=== PATIENT | female | born 1940 | race Caucasian/White ===

== ENCOUNTER 2019-08-10 10:40 | Inpatient (IN) | payer MEDICARE, BC ==
--- NOTE | 2019-08-10 11:15 | ED ---
Lower Extremity - HPI Summary HPI Summary: Pt is a 79 y/o F presenting to the ED with a chief complaint of a fall this morning around 0915. She was walking her daughters dog when the dog was startled by a car and yanked the leash, causing her to fall down. She landed on her L hip and bilateral hands. When she tried to get back up, the dog yanked again and she fell on her L knee. She reports pain in her L knee, L hip, and decreased ROM. She has been unable to walk since the incident. She denies LOC, neck pain, LE numbness or tingling, or head injury. Medications reviewed. Allergies noted. - History of Current Complaint Chief Complaint: EDHipPelvisInjury Stated Complaint: HIP PAIN PER EMS Time Seen by Provider: 08/10/19 10:57 Hx Obtained From: Patient Mechanism Of Injury: Fall From A Standing Position Onset of Pain: Immediate, Post Accident Onset/Duration: Still Present Severity Initially: Moderate Severity Currently: Moderate Pain Intensity: 4 Pain Scale Used: 0-10 Numeric Timing: Constant, Lasting Hours Associated Signs And Symptoms: Positive: Knee Pain. Negative: Weakness Aggravating Factor(s): Movement Alleviating Factor(s): Nothing Able to Bear Weight: No - Allergies/Home Medications Allergies/Adverse Reactions: Allergies Allergy/AdvReac Type Severity Reaction Status Date / Time adhesive tape Allergy Rash Verified 08/10/19 10:59 povidone-iodine Allergy Rash Verified 08/10/19 10:59 [From Betadine] tetracycline Allergy Rash Verified 08/10/19 10:58 Home Medications: Home Medications Albuterol HFA INHALER* [Ventolin HFA Inhaler*] 1 puff INH Q6H PRN 08/10/19 [ History Confirmed 08/10/19] Aspirin EC TAB* [Ecotrin EC Low Dose 81 MG*] 81 mg PO WEEKLY 08/10/19 [History Confirmed 08/10/19] Michael/D3/Mag11/Zinc/Lead Project Manager/Billy/Bor [Caltrate 600+D Plus] 2 tab PO DAILY 08/10/19 [ History Confirmed 08/10/19] Cephalexin CAP* [Keflex CAP*] 250 mg PO DAILY 08/10/19 [History Confirmed ] Hyoscyamine ER (NF) [Levbid (NF)] 0.375 mg PO .QOD 08/10/19 [History Confirmed 08/10/19] LoraTADine TAB(NF) [Claritin 10 MG TAB(NF)] 10 mg PO DAILY 08/10/19 [History Confirmed 08/10/19] Metoclopramide TAB* [Reglan TAB*] 5 mg PO Q6H PRN 08/10/19 [History Confirmed ] Multivitamins/Minerals TAB* [Theragran/minerals TAB*] 1 tab PO DAILY 08/10/19 [ History Confirmed 08/10/19] Tamoxifen TAB* [Nolvadex*] 20 mg PO DAILY 08/10/19 [History Confirmed 08/10/19] Umeclidin/Vilant 62.5 MDI(NF) [ANORO 62.5/25 Ellipta DEVICE (NF)] 25 mcg INH DAILY 08/10/19 [History Confirmed 08/10/19] Vit C/E/Zn/Coppr/Lutein/Zeaxan [Preservision Areds 2 Softgel] 1 each PO BID [History Confirmed 08/10/19] Zoledronic Acid/Mannitol-Water [Reclast 5 mg/100 ml Solution] 5 mg IV .YEARLY [History Confirmed 08/10/19] PMH/Surg Hx/FS Hx/Imm Hx Previously Healthy: Yes Endocrine/Hematology History: Denies: Hx Anticoagulant Therapy, Hx Diabetes Respiratory History: Reports: Hx Asthma, Hx Chronic Obstructive Pulmonary Disease (COPD) - Immunization History Immunizations Up to Date: Yes Infectious Disease History: No Infectious Disease History: Denies: Traveled Outside the [place] in Last 30 Days - Family History Known Family History: Negative: Diabetes - Social History Alcohol Use: Occasionally Hx Substance Use: No Substance Use Type: Reports: None Hx Tobacco Use: Yes Smoking Status (MU): Former Smoker Review of Systems Negative: Other - neck pain Positive: Arthralgia, Decreased ROM Neurological: Negative - head injury, LOC Negative: Paresthesia, Numbness All Other Systems Reviewed And Are Negative: Yes Physical Exam - Summary Physical Exam Summary: Constitutional: Well-developed, Well-nourished, Alert. (-) Distressed Skin: Warm, Dry. Abrasions on R palm, abrasions on L 4th and 5th digits, bilateral knee abrasions HENT: Normocephalic; Atraumatic Eyes: Conjunctiva normal Neck: Musculoskeletal ROM normal neck. (-) JVD, (-) Stridor, (-) Tracheal deviation Cardio: Rhythm regular, rate normal, Heart sounds normal; Intact distal pulses; The pedal pulses are 2+ and symmetric. Radial pulses are 2+ and symmetric. (-) Murmur Pulmonary/Chest wall: Effort normal. (-) Respiratory distress, (-) Wheezes, (-) Rales Abd: Soft, (-) tenderness, (-) Distension, (-) Guarding, (-) Rebound Musculoskeletal: (-) Edema. No bony tenderness to R hand, full ROM of L hand/ digits, L leg is rotated externally, shortened. DP/PT pulse 3+ Lymph: (-) Cervical adenopathy Neuro: Alert, Oriented x3 Psych: Mood and affect Normal Triage Information Reviewed: Yes Vital Signs On Initial Exam: Initial Vitals Temp Pulse Resp BP Pulse Ox 98.3 F 83 18 187/103 96 08/10/19 10:49 08/10/19 10:49 08/10/19 10:49 08/10/19 10:49 08/10/19 10:49 Vital Signs Reviewed: Yes Diagnostics - Vital Signs Vital Signs Temp Pulse Resp BP Pulse Ox 08/10/19 11:00 85 96 08/10/19 10:50 84 187/103 96 08/10/19 10:49 98.3 F 80 18 187/103 93 - Laboratory Result Diagrams: 08/10/19 13:07 08/10/19 13:07 Lab Statement: Any lab studies that have been ordered have been reviewed, and results considered in the medical decision making process. - Radiology Hip/Pelvis XR Radiology Interpretation Completed By: Radiologist Summary of Radiographic Findings: ANGULATED FRACTURE OF THE LEFT FEMORAL NECK. ED physician has reviewed this report. Knee XR Radiology Interpretation Completed By: Radiologist Summary of Radiographic Findings: LIMITED STUDY. NO APPRECIABLE ACUTE OSSEOUS INJURY OF THE LEFT KNEE. ED physician has reviewed this report. CXR Radiology Interpretation Completed By: Radiologist Summary of Radiographic Findings: LEFT PLEURAL EFFUSION. PULMONARY FIBROTIC CHANGES. ED physician has reviewed this report. Re-Evaluation - Re-Evaluation 1st re-eval Re-Evaluation Time: 13:13 Change: Unchanged Comment: Pt's daughter is here, and is a PT at [facility]. They are unsure as to whether or not they would like to stay here or be transferred. 2nd re-eval Re-Evaluation Time: 13:42 Change: Unchanged Comment: They have requested that the pt be transferred to [facility], as the pt's daughter knows the hip specialist who would be willing to take care of the pt's hip. They have been informed that the ambulance ride would not be covered by insurance. After speaking with the transfer center, there is some concern about whether or not the pt's hospital stay would be covered by insurance. 3rd re-eval Re-Evaluation Time: 14:37 Change: Unchanged Comment: They will be calling their insurance company to find out whether or not the hospital stay would be covered if the pt were to be transferred. 4th re-eval Re-Evaluation Time: 14:57 Change: Unchanged Comment: Pt agrees to be [place] [facility] as they have talked with their insurance company and the pt's stay at a different facility would not be covered by insurance. 5th re-eval Re-Evaluation Time: 15:25 Change: Unchanged Comment: Pt's daughter is on phone with Medicare now who say that the pt's visit at another facility would be covered. 6th re-eval Re-Evaluation Time: 15:56 Change: Unchanged Comment: Pt would like to be transferred to [facility]. 7th re-eval Re-Evaluation Time: 16:32 Change: Unchanged Comment: The pt is agreeable to [facility] [place]. Lower Extremity Course/Dx - Course Course Of Treatment: Patient is here after a mechanical injury causing a left hip fracture. Patient was a difficult disposition due to family wanting patient transferred to [place] and multiple insurance issues making that impossible. She was ultimately admitted to the hospital for further management. - Diagnoses Provider Diagnoses: Hip fracture, left Discharge ED - Sign-Out/Discharge Documenting (check all that apply): Patient Departure - Discharge Plan Condition: Stable Disposition: ADMITTED TO [facility] - Billing Disposition and Condition Condition: STABLE Disposition: Admitted to [facility] - Attestation Statements Document Initiated by Scribe: Yes Documenting Scribe: Nicole Graf Provider For Whom Scribe is Documenting (Include Credential): Maxime Galdamez MD. Scribe Attestation: I, Nicole Graf, scribed for Maxime Galdamez MD. on 08/10/19 at 1843. Scribe Documentation Reviewed: Yes Provider Attestation: The documentation as recorded by the scribe, Nicole Graf accurately reflects the service I personally performed and the decisions made by me, Maxime Galdamez MD. Status of Scribe Document: Viewed Consult Consult: 5036 - I spoke with Dr. Petty about the pt's present condition. [id number] - I spoke with Dr. Medel who will be evaluating the pt for admission.
--- OUTSIDE RECORDS SUMMARY | 2019-08-10 11:57 | XMS REPORT | Continuity of Care Document ---
:1940 Author Name Contemporary [employer] Modern [employer]cer, System Address Unavailable Unavailable , Care Team Providers Name Role Phone Harris Fairchild MD Unavailable Harris Fairchild MD Unavailable Navya STEEL, Gal Unavailable Tylor MSN NPC, Faby Unavailable Blanka Msn Npc, Karine Pratt Unavailable María SUPERVISOR CONTINGENTS, Pam Unavailable Unavailable More LRT, Marck Unavailable Unavailable Darío RT, Rinu Unavailable Unavailable Unavailable Unavailable Problems ABNORMAL CT SCAN, LUNG (Renamed from ABNORMAL CT SCAN OF LUNG) (R91.8) (865.44 ) Tylor MSN NPC, Comments: chest CT 08/20/2018 with Prognosis: Chest x-ray appears stable. She does have some groundglass opacities on her last CT we'll plan on repeating it in 4 months. as of 2018 Loyal small left pleural effusion, LL base consolidation,new nodule 5mm LLL, numerous tree-in-bud findings RLL worse and new linear opacity Rlung base compared to CT Chest 11/11/[address]/PET 12/02/17Repeat CT Chest 10/05/18 with left pleural effusion larger, 2 new spiculated nodules in the right base 11X7 mm and 14X8mm, mild mediastinal adenopathy, emphysema changes, patchy opacity left base, remainder unchanged. bronchoscopy (10/26/18 with very inflammed mucosa and yellow secretions noted. Pathology/cytology negative for malignancy, positive for acute inflammation.Patient had a normal swallowing evaluation 10/20/18.). BREAST CARCINOMA (C50.919) (174.9) Onset: 2014 Comments: lumpectomy , right. no Faby Nam adjuvant therapy. follows yearly with Dr Montana BRONCHIECTASIS (J47.9) (494.0) Tylor HERNANDEZ, Prognosis: STABLE. as of 04-Aug-2019 Faby COPD (CHRONIC OBSTRUCTIVE PULMONARY DISEASE) (J44.9) (496) eliseo [facility], Prognosis: Patient was evaluated in the office today in routine follow up. Patient symptoms at baseline. Noted to be doing well with current treatment regimen. Compliance with medications discussed and encouraged. Faby Instructed to continue current therapy and contact office if experiences any difficulties with therapy or an increase in symptoms. Treatment recommendations were developed (in part) from: The Gold Wo rkshop Panel. Global Strategy for the Diagnosis, Management and Prevention of COPD: NHLBI/WHO Workshop Report NLHBI; 2000. NIH Publication 2701. 2014 updates available at www.goldcopd.org as of 04-Aug-2019 ENVIRONMENTAL ALLERGIES (Z91.09) (V15.09) [facility] GERD (GASTROESOPHAGEAL REFLUX DISEASE) (K21.9) (530.81) [facility] IBS (IRRITABLE BOWEL SYNDROME) (K58.9) (564.1) [facility] CHCF (CURRENT) USE OF ANTICOAGULANTS (Z79.01) (V58.61) [facility] OSTEOPOROSIS (M81.0) (733.00) [facility] Allergies and Adverse Reactions Adhesive Tape (Allergy) Betadine *ANTISEPTICS & DISINFECTANTS* (Allergy) Reaction: Rash Tetracyclines (Allergy) Medications Albuterol Sulfate 1.25 MG/3ML Inhalation Nebulization Solution; 1 vial Milliliter as needed for 30 days Ordered: 05-Nov-2018 Start: 05-Nov-2018 Quantity: 60 {Milliliter} Comments: Medication taken as needed. Refills: 3 Anoro Ellipta 62.5-25 MCG/INH Inhalation Aerosol Powder Breath Activated; 1 ( one) Puff Puff daily for 30 days Ordered: 21-Apr-2019 Start: 21-Apr-2019 Quantity: 30 {Inhalation} [facility] Loyal Refills: 5 Anoro Ellipta 62.5-25 MCG/INH Inhalation Aerosol Powder Breath Activated; 1 ( one) Puff Puff daily for 90 days Ordered: 21-Apr-2019 Start: 21-Apr-2019 Quantity: 90 {Inhalation} Tylor [facility], Loyal Refills: 3 Aspirin 81 MG Oral Tablet Delayed Release; 1 weekly (81 MG) Caltrate 600+D 600-800 MG-UNIT Oral Tablet; 2 daily (600-800 MG-UNIT) Cephalexin 250 MG Oral Tablet; 1 daily (250 MG) Levbid 0.375 MG Oral Tablet Extended Release 12 Hour; (0.375 MG) Loratadine 10 MG Oral Tablet; 1 daily (10 MG) Metoclopramide HCl 5 MG Oral Comments: Medication taken Tablet; daily, as needed (5 MG) as needed. Multiple Vitamin Oral Tablet; daily PreserVision AREDS 2 Oral Capsule; 1 two times daily RaNITidine HCl 300 MG Oral Comments: Medication taken Tablet; 1 daily, as needed (300 as needed. MG) Reclast 5 MG/100ML Intravenous Solution; yearly (5 MG/100ML) Tamoxifen Citrate 20 MG Oral Tablet; daily (20 MG) Ventolin HFA 108 (90 Base) MCG/ACT Inhalation Aerosol Solution; 2 four times daily, as needed for 0 days Ordered: 07-Apr-2019 Start: 07-Apr-2019 Refills: 0 MD Gal Mendosa Comments: Medication taken as needed. Azithromycin 500 MG Oral Tablet; 1 (one) Tablet daily for 14 days Ordered: Start: 05-Nov-2018 End: 19-Nov-2018 Quantity: 14 {Tablet} MD Gal Mendosa Status: Inactive Refills: 0 Estrace 0.1 MG/GM Vaginal Cream; Status: Inactive UAD (0.1 MG/GM) Hyoscyamine Sulfate ER 0.375 MG Status: Inactive Oral Tablet Extended Release 12 Hour; 1 every other day (0.375 MG) LevoFLOXacin 500 MG Oral Tablet; 1 (one) Tablet daily for 14 days Ordered: Start: 03-Sep-2018 End: 17-Sep-2018 Quantity: 14 {Tablet} MD Gal Mendosa Status: Inactive Refills: 0 Meloxicam 15 MG Oral Tablet; 1 Status: Inactive every other day (15 MG) PredniSONE 5 MG Oral Tablet; Status: Inactive daily (5 MG) Stiolto Respimat 2.5-2.5 MCG/ACT Inhalation Aerosol Solution; 2 (two) Puff daily for 90 days Ordered: 07-Apr-2019 Start: 28-Dec-2018 End: 07-Apr-2019 Quantity: 3 {Inhaler} MD Rio Mendosau Status: Inactive Refills: 3 Procedures AIRFLOW RESISTANCE MEASUREMENT: PULM FUNCT Status: Completed 07-Apr-2019 TEST OSCILLOMETRY (61628) TOTAL VITAL CAPACITY (16834) Status: Completed 07-Apr-2019 THORACIC GAS VOLUME: AIRWAY CLOSING VOLUME Status: Completed 07-Apr-2019 MEASUREMENT: PULM FUNCTION TEST BY GAS (02832) DLCO (CARBON MONOXIDE DIFFUSING CAPACITY) Status: Completed 07-Apr-2019 (81373) DLCO (CARBON MONOXIDE DIFFUSING CAPACITY) Status: Completed 05-Oct-2018 (63302) THORACIC GAS VOLUME: AIRWAY CLOSING VOLUME Status: Completed 05-Oct-2018 MEASUREMENT: PULM FUNCTION TEST BY GAS (41393) RESPIRATORY FLOW VOLUME LOOP (38814) Status: Completed 05-Oct-2018 TOTAL BODY PLETHYSMOGRAPHY: AIRWAY CLOSING Status: Completed 05-Oct-2018 VOLUME MEASUREMENT: PULM FUNCT TST PLETHYSMOGRAP (83854) TOTAL VITAL CAPACITY (86358) Status: Completed 05-Oct-2018 AIRFLOW RESISTANCE MEASUREMENT: PULM FUNCT Status: Completed 05-Oct-2018 TEST OSCILLOMETRY (22656) REST/ EXERCISE OXIMETRY (29227) Status: Completed 03-Sep-2018 RESPIRATORY FLOW VOLUME LOOP (44891) Status: Completed 03-Sep-2018 MEASUREMENT OF NITRIC OXIDE Status: Completed 03-Sep-2018 (20321) Bladder Surgery Status: Completed Oct-2018 Comments: Interstim Chest X-ray Status: Completed 24-Dec-2018 Comments: reviewed today with Dr Marck Mendosa. Left pleural effusion is smaller. BRAYAN consolidation reported as slightly larger. CT Chest is planned in f /u Chest X-ray Status: Completed 04-Aug-2019 Comments: chronic changes CT Scan of Chest Status: Completed Comments: Referred for follow up. the LLL density improved. the other areas same. will follow the report. FeNO Status: Completed 03-Sep-2018 Comments: 30 ppb Flu Vaccine Status: Completed 30-Jul-2018 Hysterectomy; Vaginal Status: Completed Lumpectomy Status: Completed Comments: Right. Malignant Oral Surgery Status: Completed PFT Status: Completed 05-Oct-2018 Comments: Moderate Obstruction. Mild Restriction. Severe Diffusion Defect. PFT Status: Completed 24-Dec-2018 Comments: Moderate Obstruction. Mild Restriction. Moderate Diffusion Defect. PFT Status: Completed 04-Aug-2019 Comments: Moderate Obstruction. FEV1 1.46 (65), ratio 70 Spinal Stimulator Status: Completed Nov-2018 Tubal Ligation Status: Completed CXR PA & LAT (71783)Result: Are you or could Status: Completed Jul-2019 you become ?: No; When was you last CXR/CT?: over week ago; Banquet Food Server: ADAN RuvalcabaT PRE AND POST (34079)Result: Hemoptysis: No Status: Completed 07-Apr-2019 CAT SCAN OF CHEST: CT THORAX W/O DYE (83244)Result: Status: Completed 2018 Are you or could you become ?: No; When was you last CXR/CT?: over week ago; Banquet Food Server: COURTNEY Ruvalcaba SIMPLE PFT: BASELINE PULMONARY FUNCTION TEST (PFT) Status: Completed 2018 (94178)Result: Hemoptysis: No CXR PA & LAT (20189)Result: Are you or could Status: Completed Nov-2018 you become ?: No; When was you last CXR/CT?: over week ago; Banquet Food Server: ADAN RuvalcabaT PRE AND POST (44882)Result: Hemoptysis: No Status: Completed 05-Oct-2018 CAT SCAN OF CHEST: CT THORAX W/O DYE (97013)Result: Status: Completed 2017 Are you or could you become ?: No; When was you last CXR/CT?: over week ago; Banquet Food Server: ADAN RuvalcabaT PRE AND POST (85494)Result: Hemoptysis: No Status: Completed 03-Sep-2018 Immunizations Influenza (3 years and up) On: 30-Jul-2018 Comments:Date approximate Family History Lung/Respiratory Disease Status: Active Comments: Negative Family History Of. Social History Alcohol use: Occasional alcohol use. Current work status: Retired. Comments: Teacher Marital status: . Tobacco use: Former smoker. Comments: [birth year] to 1965 (Up to 1 ppd) Former smoker Female Plan of Treatment PRE AND POST W/ RT (36037) Start: 24-Nov-2019 Intent PRE AND POST (41646) Start: 04-Aug-2019 Intent BRONCHOSCOPY IN ENDO (22934) Start: 08-Oct-2018 Intent MODIFIED BARIUM SWALLOW (59609) Start: 08-Oct-2018 Intent SWALLOWING EVALUATION (46639) Start: 08-Oct-2018 Intent Medical; CT SCAN CHEST - Start: 02-Dec-2019 10:00 Appointment Request [facility] Office XRAY [facility], Xray Medical; PRE AND POST RT - Start: 02-Dec-2019 10:15 Appointment Request [facility] Office Resp Therapy [facility], RT Medical; FOLLOW UP 30 - 4MO FU ,PPRT,CT Start: 02-Dec-2019 10:30 Appointment Request [facility] Office Defuria Msn Npc, Karine Pratt IGA/IGD/IGG/IGM-EACH ([id number]) Start: 07-Apr-2019 10:47 Request COPD (CHRONIC OBSTRUCTIVE PULMONARY DISEASE) : Influenza vaccine seasonally Indication:COPD (CHRONIC OBSTRUCTIVE PULMONARY DISEASE) COPD (CHRONIC OBSTRUCTIVE PULMONARY DISEASE) : FU EITHER - Dr Mendosa patient Indication:COPD (CHRONIC OBSTRUCTIVE PULMONARY DISEASE) COPD (CHRONIC OBSTRUCTIVE PULMONARY DISEASE) : Medication compliance reinforced Indication:COPD (CHRONIC OBSTRUCTIVE PULMONARY DISEASE) ABNORMAL CT SCAN, LUNG (Renamed from ABNORMAL CT SCAN OF LUNG) : FU EITHER - Dr Mendosa patient Indication:ABNORMAL CT SCAN, LUNG (Renamed from ABNORMAL CT SCAN OF LUNG) ABNORMAL CT SCAN, LUNG (Renamed from ABNORMAL CT SCAN OF LUNG) : Pt Education: Bronchoscopy Indication:ABNORMAL CT SCAN, LUNG (Renamed from ABNORMAL CT SCAN OF LUNG) Results ACID FAST CUL/SMEAR Ordered On: 26-Oct-2018 ACID FAST CUL/SMEAR See Comments: SPECIMEN DESCRIPTION Note (Normal) BRONCHIAL WASHINGSSPECIAL REQUESTS NONEACID FAST SMEAR NO ACID FAST BACILLI (CONCENTRATED SMEAR)CULTURE RESULTS NO ACID FAST BACILLI ISOLATED AFTER 8 WEEKSREPORT STATUS FINAL 12/21/2018Unless otherwise specified, [place] [address] ANAEROBIC CULTURE Ordered On: 26-Oct-2018 ANAEROBIC CULTURE See Comments: SPECIMEN DESCRIPTION Note (Normal) BRONCHIAL WASHINGSSPECIAL REQUESTS NONECULTURE RESULTS ANAEROBIC CULTURES NOT PERFORMED ON THIS SPECIME N. REPORT STATUS FINAL 10/26/2018Unless otherwise specified, [place] [address] FUNGUS CULTURE Ordered On: 26-Oct-2018 FUNGUS CULTURE See Note Comments: SPECIMEN DESCRIPTION (Normal) BRONCHIAL WASHINGSSPECIAL REQUESTS NONECULTURE RESULTS SCEDOSPORIUM (MONOSPORIUM) APIOSPERMUM /PSEUDALLESCHERIA BOYDII COMPLEX BY PHENOTYPIC M ETHODS 11/26/18 SENT TO [facility] FOR IDENTIFICATION 11/19/18TESTING PERFORMED BY: [facility] PATHOLOG[address] [address] REPORT STATUS FINAL 11/26/2018Unless otherwise specified, testing performed by [email or web address] [address] [place] [id number] LEGIONELLA CULTURE Ordered On: 26-Oct-2018 REPORT STATUS SEE NOTE Comments: Culture negative for (Normal) Legionella species Performed by [facility],[address] [place] [address],[place] [address] zoz.[facility], Navin Bruner MD, Lab. DirectorUnless otherwise specified, testing performed by [email or web address] [address] [place] [id number] CULTURE RESULTS SEE NOTE Comments: Specimen received and in (Normal) progress. Performed by [facility],[address] [facility] [place] [address] aqc.Ocutec, Navin Bruner MD, Lab. Director LEGIONELLA PNEUM DFA Ordered On: 26-Oct-2018 L. PNEUMOPHILIA DFA See Comments: NegativeReference range: Note (Normal) NegativeNucleic acid amplification tests provide greater sensitivity than DFA and should be ordered if clinically indicated. The preferred test is Legionella Species by Qualitative PCR ([facility] test code [id number]).Performed by [facility],[address] [facility] [place] [address] gzd.Ocutec, Navin Bruner MD, Lab. DirectorUnless otherwise specified, testing performed by [email or web address] [address] [place] [phone] L. PNEUMOPHILIA SRCE BRONCHIAL WASHINGS (Normal) MISCELLANEOUS TEST Ordered On: 26-Oct-2018 PERFORMING LAB: Comments: [address] [place] [id number] otherwise (Normal) specified, testing performed by [email or web address] [address] [place] [address] RESULT: SEE SEPARATE REPORT (Normal) TEST NAME See Note Comments: [id number] Fungal (Normal) (Mold/Yeast) IdentificationSPECIMEN SOURCE: BRONCHIAL WASHINGS P JIROVECII BY PCR Ordered On: 26-Oct-2018 P JIROVECII RESULT See Comments: Not DetectedNOT DETECTED Note (Normal) - A negative result does not rule out thepresence of PCR inhibitors in the patient specimen or assayspecific nucleic acid in concentrations below the level ofdetection by the assay.TEST INFORMATION: Pneumocystis jirovecii Detection by PCRTest developed and characteristics determined by [facility] See Compliance Statement B: [facility]/CSPerformed by [facility],[address] [place] [address] mzu.[employer], Navin Bruner MD, Lab. DirectorUnless otherwise specified, testing performed by [email or web address] [address] [place] [address] P JIROVECII SOURCE BRONCHIAL WASHINGS (Normal) RESPIRATORY CULTURE Ordered On: 26-Oct-2018 RESPIRATORY CULTURE See Comments: SPECIMEN DESCRIPTION Note (Normal) BRONCHIAL WASHINGSGRAM STAIN MANY (>25/LPF) WHITE BLOOD CELLS NO EPITHELIAL CELLS NO BACTERIACULTURE RESULTS NORMAL RESPIRATORY FLORAREPORT STATUS FINAL 10/28/2018Unless otherwise specified, testing performed by [email or web address] [address] [place] [id number] PLATELET COUNT, AUTOMATED Ordered On: 22-Oct-2018 (13978) PLT 413 10*3/uL (Normal) Range: 150 10*3/uL - 450 10*3/uL Comments: Unless otherwise specified, testing performed by [email or web address] [address] [place] [address] PTT (ACTIVATED PARTIAL Ordered On: 22-Oct-2018 THROMBOPLASTIN TIME) (55816) APTT 26.4 s (Normal) Range: 22.0 s - 32.6 s Comments: Unless otherwise specified, testing performed by [email or web address] [address] [place] [address] PT (PROTHROMBIN TIME) Ordered On: 22-Oct-2018 (55670) INR 0.99 (Normal) Comments: SUGGESTED THERAPEUTIC RANGES USING INR FORSTABILIZED ANTICOAGULATED PATIENTS:STANDARD DOSE THERAPY INR 2.0-3.0 DVT, PE, PREVENT DVT OR EMBOLISMHIGH DOSE THERAPY INR 2.5-3.5 PREVENT EMBOLISM FROM MECHANICAL HEART VALVEUnless otherwise specified, testing performed by [facility] [address] [address] PT 10.2 s (Normal) Range: 9.2 s - 11.9 s Vital Signs 04-Aug-2019 8:25 Temperature 97.4 f Comments: Method: Tympanic Pulse 83 /min Comments: Pattern: Regular Respiration Rate 16 /min Comments: Pattern: Unlabored O2 SAT 97 % Comments: Room air BP Systolic 118 mm[Hg] Comments: Patient Position: Sitting; Cuff Location: Left Arm; Cuff Size: Standard BP Diastolic 68 mm[Hg] Comments: Patient Position: Sitting; Cuff Location: Left Arm; Cuff Size: Standard Weight 114 lb Height 66 in BMI 18.4 kg/m2 BSA 1.58 m2 21-Apr-2019 14:42 Temperature 98.4 f Comments: Method: Tympanic Pulse 93 /min Comments: Pattern: Regular Respiration Rate 14 /min Comments: Pattern: Unlabored O2 SAT 97 % Comments: Room air BP Systolic 136 mm[Hg] Comments: Patient Position: Sitting; Cuff Location: Left Arm; Cuff Size: Standard BP Diastolic 80 mm[Hg] Comments: Patient Position: Sitting; Cuff Location: Left Arm; Cuff Size: Standard Weight 114 lb Height 66 in BMI 18.4 kg/m2 BSA 1.58 m2 07-Apr-2019 10:01 Temperature 97.9 f Comments: Method: Tympanic Pulse 96 /min Comments: Pattern: Regular Respiration Rate 16 /min Comments: Pattern: Unlabored O2 SAT 97 % Comments: Room air BP Systolic 136 mm[Hg] Comments: Patient Position: Sitting; Cuff Location: Left Arm; Cuff Size: Standard BP Diastolic 76 mm[Hg] Comments: Patient Position: Sitting; Cuff Location: Left Arm; Cuff Size: Standard Weight 110 lb Height 66 in BMI 17.75 kg/m2 BSA 1.55 m2 24-Dec-2018 11:05 Temperature 98.4 f Comments: Method: Tympanic Pulse 77 /min Comments: Pattern: Regular Respiration Rate 16 /min Comments: Pattern: Unlabored O2 SAT 99 % Comments: Room air BP Systolic 122 mm[Hg] Comments: Patient Position: Sitting; Cuff Location: Left Arm; Cuff Size: Standard BP Diastolic 66 mm[Hg] Comments: Patient Position: Sitting; Cuff Location: Left Arm; Cuff Size: Standard Weight 111 lb Height 66 in BMI 17.92 kg/m2 BSA 1.56 m2 05-Nov-2018 14:18 Temperature 97.8 f Comments: Method: Tympanic Pulse 78 /min Comments: Pattern: Regular Respiration Rate 12 /min Comments: Pattern: Unlabored O2 SAT 95 % Comments: Room air BP Systolic 148 mm[Hg] Comments: Patient Position: Sitting; Cuff Location: Left Arm; Cuff Size: Standard BP Diastolic 94 mm[Hg] Comments: Patient Position: Sitting; Cuff Location: Left Arm; Cuff Size: Standard Weight 108 lb Height 66 in BMI 17.43 kg/m2 BSA 1.54 m2 08-Oct-2018 11:27 Temperature 97.8 f Comments: Method: Tympanic Pulse 88 /min Comments: Pattern: Regular Respiration Rate 16 /min Comments: Pattern: Unlabored O2 SAT 97 % Comments: Room air BP Systolic 146 mm[Hg] Comments: Patient Position: Sitting; Cuff Location: Left Arm; Cuff Size: Standard BP Diastolic 82 mm[Hg] Comments: Patient Position: Sitting; Cuff Location: Left Arm; Cuff Size: Standard Weight 109 lb Height 66 in BMI 17.59 kg/m2 BSA 1.55 m2 05-Oct-2018 10:54 Pulse 91 /min Comments: Pattern: Regular Respiration Rate 16 /min Comments: Pattern: Unlabored O2 SAT 97 % Comments: Room air Weight 109 lb Height 66 in BMI 17.59 kg/m2 BSA 1.55 m2 03-Sep-2018 9:58 Comments: 2 minute walk sat 92% Temperature 98 f Comments: Method: Tympanic Pulse 90 /min Comments: Pattern: Regular Respiration Rate 14 /min Comments: Pattern: Unlabored O2 SAT 95 % Comments: Room air BP Systolic 134 mm[Hg] Comments: Patient Position: Sitting; Cuff Location: Left Arm; Cuff Size: Standard BP Diastolic 74 mm[Hg] Comments: Patient Position: Sitting; Cuff Location: Left Arm; Cuff Size: Standard Weight 108 lb Height 66 in BMI 17.43 kg/m2 BSA 1.54 m2 Advance Directives HIPAA - Effective on 04/21/2019. Expiration date unspecified Effective: 2018 Encounters Office Visit 04-Aug-2019 8:30 To 04-Aug-2019 9:00 Encounter Reason: COPD - The last office visit was 3 month(s) ago. No changes in management were made at the last visit [facility] Office . The Gold Classification is Stage 2: Moderate COPD. Symptoms do not include dyspnea on exertion, wheezing or productive cough. The patient describes this as mild and unchanged. Symptoms are exacerbated by activity. Symptoms are relieved by use of a nebulizer, while symptoms are not relieved by inhaler use, supplemental oxygen, rest, recumbency, the upright position or cough suppressants. Associated s ymptoms do not include fever, weakness, general malaise, hemoptysis, leg edema , orthopnea, upper respiratory infection symptoms, chest pain or altered mental status. Current treatment includes inhaled a lbuterol, inhaled long-acting beta-2 agonists and inhaled anticholinergics. By report there is good compliance with treatment and fair symptom control. Pertinent medical history includes smoking (has qu it) and pneumonia, while pertinent medical history does not include smoking ( currently), oxygen dependency, steroid dependency, asthma, prior intubation and ventilator therapy, tracheostomy, congestive heart failure, cor pulmonale, obstructive sleep apnea, lung cancer, impaired immunity or alpha-1 antitrypsin deficiency. The patient is currently able to do activities of daily living with limitations. Encounter Diagnosis: COPD (CHRONIC OBSTRUCTIVE PULMONARY DISEASE), ABNORMAL CT SCAN, LUNG (Renamed from ABNORMAL CT SCAN OF LUNG) Office Visit 21-Apr-2019 14:30 To 21-Apr-2019 15:03 Encounter Reason: COPD - The last office visit was 4 month(s) ago. Management changes made at the last visit include or [facility] Office dering started medications. The Gold Classification is Stage 2: Moderate COPD. Symptoms include dyspnea on exertion, wheezing and productive cough. Onset was gradual 2 week(s) ago. The episodes occur da jack. The patient describes this as mild and worsening. Symptoms are exacerbated by activity. Symptoms are relieved by use of a nebulizer, while symptoms are not relieved by inhaler use, supplemental oxy gen, rest, recumbency, the upright position or cough suppressants. Associated symptoms do not include fever, weakness, general malaise, hemoptysis, leg edema , orthopnea, upper respiratory infection symp toms, chest pain or altered mental status. Current treatment includes inhaled albuterol, inhaled long-acting beta-2 agonists and inhaled anticholinergics. By report there is good compliance with treatme nt. Pertinent medical history includes smoking (has quit) and pneumonia, while pertinent medical history does not include smoking (currently), oxygen dependency, steroid dependency, asthma, prior intuba tion and ventilator therapy, tracheostomy, congestive heart failure, cor pulmonale, obstructive sleep apnea, lung cancer, impaired immunity or alpha-1 antitrypsin deficiency. The patient is currently ab le to do activities of daily living with limitations.04/21/2019:FEELS BETTER WITH THE NEW INHALER. THE LAB TESTING ALL NORMAL RANGE. Encounter Diagnosis: COPD (CHRONIC OBSTRUCTIVE PULMONARY DISEASE), ABNORMAL CT SCAN, LUNG (Renamed from ABNORMAL CT SCAN OF LUNG), BRONCHIECTASIS Office Visit 07-Apr-2019 10:45 To 07-Apr-2019 10:50 Encounter Reason: COPD - The last office visit was 4 month(s) ago. Management changes made at the last visit include or [facility] Office dering started medications. The Gold Classification is Stage 2: Moderate COPD. Symptoms include dyspnea on exertion, wheezing and productive cough. Onset was gradual 2 week(s) ago. The episodes occur da jack. The patient describes this as mild and worsening. Symptoms are exacerbated by activity. Symptoms are relieved by use of a nebulizer, while symptoms are not relieved by inhaler use, supplemental oxy gen, rest, recumbency, the upright position or cough suppressants. Associated symptoms do not include fever, weakness, general malaise, hemoptysis, leg edema , orthopnea, upper respiratory infection symp toms, chest pain or altered mental status. Current treatment includes inhaled albuterol, inhaled long-acting beta-2 agonists and inhaled anticholinergics. By report there is good compliance with treatme nt. Pertinent medical history includes smoking (has quit) and pneumonia, while pertinent medical history does not include smoking (currently), oxygen dependency, steroid dependency, asthma, prior intuba tion and ventilator therapy, tracheostomy, congestive heart failure, cor pulmonale, obstructive sleep apnea, lung cancer, impaired immunity or alpha-1 antitrypsin deficiency. The patient is currently ab le to do activities of daily living with limitations. Encounter Diagnosis: ABNORMAL CT SCAN, LUNG ( Renamed from ABNORMAL CT SCAN OF LUNG), COPD (CHRONIC OBSTRUCTIVE PULMONARY DISEASE) Historical Summary 25-Mar-2019 9:23 To 25-Mar-2019 9:43 [facility] Office Medication Order 28-Dec-2018 10:35 To 28-Dec-2018 12:14 Encounter Diagnosis: COPD (CHRONIC OBSTRUCTIVE PULMONARY DISEASE) [facility] Office Visit 24-Dec-2018 10:53 To 24-Dec-2018 15:34 Encounter Reason: Abnormal Chest Imaging - The referring provider is Dr. Harris Fairchild. Radiographic findings include a [facility] pleural effusion (left), an air bronchogram (left), an infiltrate (LLL, RML, BRAYAN), pulmonary nodules and ground glass changes. The patient was referred by a primary care provider. Initial presentation w as 3 month(s) ago. Presentation included cough, dyspnea, fever, wheezing, incidental findings on chest x-ray, incidental findings on chest CT and incidental findings on abdominal CT. Past evaluation has included chest x-ray, chest CT (08/20/2018 with small left pleural effusion, LL base consolidation,new nodule 5mm LLL, numerous tree-in-bud findings RLL worse and new linear opacity Rlung base compared to CT Chest 11/11/[address]/PET 12/02/17Repeat CT Chest 10/05/18 with left pleural effusion larger, 2 new spiculated nodules in the right base 11X7 mm and 14X8mm, mild mediastinal adenopathy, emphysema ch anges, patchy opacity left base, remainder unchanged.), pulmonary function tests and bronchoscopy (10/26/18 with very inflammed mucosa and yellow secretions noted. Pathology/cytology negative for maligna ncy, positive for acute inflammation.Patient had a normal swallowing evaluation 10/20/18.). Treatment has included antibiotics (ceftin 07/2018, Levaquin 09/03/18, and at last visit Azithromycin 500 d aily for 14 days. She states she never took the azithromycin because she was having bladder surgery (inter stim) to address urinary frequency. It is a 2 step procedure. 11/09/18 and 11/25/18. Dr Maci raymond did the surgery. She was given an antibiotic at the time of the first surgery and for 10 days after. Since that time she has been "feeling like her old self again".) and bronchodilators. The las t clinic visit was 6 week(s) ago. Management changes made at the last visit include adding medication. Symptoms include dyspnea (improved), while symptoms do not include cough, chest pain, hemoptysis, w heezing or palpitations. Onset was gradual 2 month(s) ago. The patient describes this as moderate in severity and improving. Symptoms are exacerbated by physical exertion, while symptoms are not exacerb ated by air pollutants, smoking or supine position. Symptoms are relieved by rest and inhaled medication. Associated symptoms do not include fatigue, fever, weight loss, rash, arthralgia or night sweats . Current treatment includes bronchodilators. By report there is good compliance with treatment, good tolerance of treatment and good symptom control. Pertinent medical history includes asthma (hx datin g back to teen years), chronic obstructive pulmonary disease, chronic respiratory disease, tobacco use (quit in 1967 after 9 years smoking.), previous pneumonia and malignancy (basal cell breast cancer) , while pertinent medical history does not include aspirated foreign body, cardiovascular disease, diabetes, endocrine dysfunction, gastrointestinal disease, penetrating chest wound, pulmonary embolus, cardiothoracic surgery, HIV infection or tuberculosis. Risk factors include tobacco use, while risk factors do not include occupational toxic exposure, impaired immunity or [facility] residency., [ADDITIONAL REASON] COPD - Management changes made at the last visit include adding Stiolto and stopping pulmicort and spiriva (she did not make this change as she was having bladder surgery and "did n ot want to chance it".). The Gold Classification is Stage 2: Moderate COPD. Symptoms include dyspnea on exertion, non-productive cough and productive cough. Onset was gradual. The symptoms occur intermi ttently. The episodes occur daily. The patient describes this as moderate in severity. Symptoms are exacerbated by activity. Symptoms are relieved by inhaler use and rest. Associated symptoms do not inc lude leg edema or upper respiratory infection symptoms. Current treatment includes inhaled albuterol, inhaled long-acting beta-2 agonists, inhaled anticholinergics and inhaled corticosteroids. Pertinent medical history includes smoking (has quit), asthma and pneumonia. The patient is currently able to do activities of daily living without limitations. Encounter Diagnosis: ABNORMAL CT SCAN, LUNG ( Renamed from ABNORMAL CT SCAN OF LUNG), COPD (CHRONIC OBSTRUCTIVE PULMONARY DISEASE) Historical Summary 24-Dec-2018 7:52 To 24-Dec-2018 8:17 Encounter Reason: Abnormal Chest Imaging - The referring provider is Dr. Harris Fairchild. Radiographic findings include a [facility] pleural effusion (left), an air bronchogram (left), an infiltrate (LLL, RML, BRAYAN), pulmonary nodules and ground glass changes. The patient was referred by a primary care provider. Initial presentation w as 3 month(s) ago. Presentation included cough, dyspnea, fever, wheezing, incidental findings on chest x-ray, incidental findings on chest CT and incidental findings on abdominal CT. Past evaluation has included chest x-ray, chest CT (08/20/2018 with small left pleural effusion, LL base consolidation,new nodule 5mm LLL, numerous tree-in-bud findings RLL worse and new linear opacity Rlung base compared to CT Chest 11/11/[address]/PET 12/02/17Repeat CT Chest 10/05/18 with left pleural effusion larger, 2 new spiculated nodules in the right base 11X7 mm and 14X8mm, mild mediastinal adenopathy, emphysema ch anges, patchy opacity left base, remainder unchanged.), pulmonary function tests and bronchoscopy (10/26/18 with very inflammed mucosa and yellow secretions noted. Pathology/cytology negative for maligna ncy, positive for acute inflammation.Patient had a normal swallowing evaluation 10/20/18.). Treatment has included antibiotics (ceftin 07/2018, Levaquin 09/03/18, and at last visit Azithromycin 500 gaetano y for 14 days.) and bronchodilators. The last clinic visit was 6 week(s) ago. Management changes made at the last visit include adding medication ( azithromycin). Symptoms include cough, dyspnea and whee zing, while symptoms do not include chest pain, hemoptysis or palpitations. Onset was gradual 2 month(s) ago. The patient describes this as moderate in severity and improving. Symptoms are exacerbated b y physical exertion, while symptoms are not exacerbated by air pollutants, smoking or supine position. Symptoms are relieved by rest and inhaled medication. Associated symptoms do not include fatigue, f ever, weight loss, rash, arthralgia or night sweats. Current treatment includes bronchodilators. By report there is good compliance with treatment and good tolerance of treatment. Pertinent medical hist ory includes asthma, chronic obstructive pulmonary disease, chronic respiratory disease, tobacco use (quit in 1968 after 9 years smoking.) and malignancy (basal cell breast cancer), while pertinent medi araceli history does not include aspirated foreign body, cardiovascular disease, diabetes, endocrine dysfunction, gastrointestinal disease, penetrating chest wound, pulmonary embolus, previous pneumonia, ca rdiothoracic surgery, HIV infection or tuberculosis. Risk factors include tobacco use, while risk factors do not include occupational toxic exposure, impaired immunity or [facility]., [ADDITIONAL REASON] COPD - The Gold Classification is Stage 2: Moderate COPD. Symptoms include dyspnea on exertion, non-productive cough and productive cough. Onset was gradual. The symptoms occur inte rmittently. The episodes occur daily. The patient describes this as moderate in severity. Symptoms are exacerbated by activity. Symptoms are relieved by inhaler use and rest. Associated symptoms do not include leg edema or upper respiratory infection symptoms. Current treatment includes inhaled albuterol, inhaled long-acting beta-2 agonists and inhaled anticholinergics. Pertinent medical history inclu oliver smoking (has quit), asthma and pneumonia. The patient is currently able to do activities of daily living without limitations. Office Visit 05-Nov-2018 13:54 To 05-Nov-2018 14:46 Encounter Reason: Abnormal Chest Imaging - Radiographic findings include a pleural effusion (left), an air bronchogram [facility] (left) and an infiltrate (LLL, RML, BRAYAN). The patient was referred by a primary care provider. Initial presentation was 2 month(s) ago. Presentation included cough, dyspnea, fever (in 06/2018), wheezing, incidental findings on chest x-ray, incidental findings on chest CT and incidental findings on abdominal CT. Past evaluation has included chest x-ray and chest CT (PET 11/2017). Treat ment has included analgesics (ceftin in 07/2018, did not help, may be slightly better.). Symptoms include cough, dyspnea and wheezing, while symptoms do not include chest pain, hemoptysis or palpitations . Onset was gradual 2 month(s) ago. The patient describes this as moderate in severity and unchanged. Symptoms are exacerbated by physical exertion, while symptoms are not exacerbated by air pollutants, smoking or supine position. Symptoms are relieved by rest and inhaled medication, while symptoms are not relieved by activity modification, irritant avoidance, an upright position or steroids. Associat ed symptoms include fatigue, fever (some time) and weight loss, while associated symptoms do not include anxiety, diaphoresis, rash, arthralgia or night sweats. The patient is not currently being treate d for this problem. By report there is good compliance with treatment. Pertinent medical history includes asthma, chronic obstructive pulmonary disease , chronic respiratory disease, tobacco use (quit in 1967 after 9 year smoking.) and malignancy (basal cell, breast,), while pertinent medical history does not include aspirated foreign body, cardiovascular disease, diabetes, endocrine dysfunction, gastr ointestinal disease, penetrating chest wound, pulmonary embolus, previous pneumonia, cardiothoracic surgery, HIV infection or tuberculosis. Risk factors do not include tobacco use, occupational toxic ex posure, impaired immunity or [facility] residency.10/08/2018:THE ABOVE INFO REVIEWED AGAIN. FEELS A LOT BETTER. LESS CONGESTION, LESS SOB, LESS COUGH. THE FULL PFTS SHOWED MODERATE COPD, AND MILD R ESTRICTION. CT SHOWED NOW NODULES IN THE RIGHT BASE, WHICH IS NEW FROM FEW WEEKS AGO, CLINICALLY LESS LIKELY FROM MALIGNANCY. PATIENT DID HAS TROUBLE SWOLLOW SOME TIME. NEED TO R/O ASPIRATION. DISC USSED BRONCHOSCOPY. AND THE PATIENT AGREE. THE PROS AN CONS DISCUSSED. , [ ADDITIONAL REASON] Follow up diagnostic procedure - The patient had bronchoscopy. The diagnostic te st was performed on - Date:10/26/2018. Current symptoms include cough, dyspnea and wheezing. There is a medical history of chronic obstructive lung disease, lung disease and asthma, while there is no hi story of tobacco use, lung cancer, depression, cardiovascular disease, coronary artery disease, abnormal Pap smear, anatomic urinary anomalies, chest injury, congenital/chromosomal defects, current preg marcelo, emotional problems, hypertension, injury, mental retardation, neurologic disorder, psychiatric illness or other. There is a family history of breast cancer, while there is no history of lung canc er, cancer, cardiovascular disease, cystic fibrosis, Down's syndrome, mental retardation or myocardial infarction before age 55. Encounter Diagnosis: ABNORMAL CT SCAN, LUNG ( Renamed from ABNORMAL CT SCAN OF LUNG), COPD (CHRONIC OBSTRUCTIVE PULMONARY DISEASE) Office Visit 08-Oct-2018 11:16 To 08-Oct-2018 12:01 Encounter Reason: Abnormal Chest Imaging - Radiographic findings include a pleural effusion (left), an air bronchogram [facility] (left) and an infiltrate (LLL, RML, BRAYAN). The patient was referred by a primary care provider. Initial presentation was 2 month(s) ago. Presentation included cough, dyspnea, fever (in 06/2018), wheezing, incidental findings on chest x-ray, incidental findings on chest CT and incidental findings on abdominal CT. Past evaluation has included chest x-ray and chest CT (PET 11/2017). Treat ment has included analgesics (ceftin in 07/2018, did not help, may be slightly better.). Symptoms include cough, dyspnea and wheezing, while symptoms do not include chest pain, hemoptysis or palpitations . Onset was gradual 2 month(s) ago. The patient describes this as moderate in severity and unchanged. Symptoms are exacerbated by physical exertion, while symptoms are not exacerbated by air pollutants, smoking or supine position. Symptoms are relieved by rest and inhaled medication, while symptoms are not relieved by activity modification, irritant avoidance, an upright position or steroids. Associat ed symptoms include fatigue, fever (some time) and weight loss, while associated symptoms do not include anxiety, diaphoresis, rash, arthralgia or night sweats. The patient is not currently being treate d for this problem. By report there is good compliance with treatment. Pertinent medical history includes asthma, chronic obstructive pulmonary disease , chronic respiratory disease, tobacco use (quit in 1967 after 9 year smoking.) and malignancy (basal cell, breast,), while pertinent medical history does not include aspirated foreign body, cardiovascular disease, diabetes, endocrine dysfunction, gastr ointestinal disease, penetrating chest wound, pulmonary embolus, previous pneumonia, cardiothoracic surgery, HIV infection or tuberculosis. Risk factors do not include tobacco use, occupational toxic ex posure, impaired immunity or [facility] residency.10/08/2018:THE ABOVE INFO REVIEWED AGAIN. FEELS A LOT BETTER. LESS CONGESTION, LESS SOB, LESS COUGH. THE FULL PFTS SHOWED MODERATE COPD, AND MILD R ESTRICTION. CT SHOWED NOW NODULES IN THE RIGHT BASE, WHICH IS NEW FROM FEW WEEKS AGO, CLINICALLY LESS LIKELY FROM MALIGNANCY. PATIENT DID HAS TROUBLE SWOLLOW SOME TIME. NEED TO R/O ASPIRATION. DISC USSED BRONCHOSCOPY. AND THE PATIENT AGREE. THE PROS AN CONS DISCUSSED. Encounter Diagnosis: ABNORMAL CT SCAN, LUNG ( Renamed from ABNORMAL CT SCAN OF LUNG), COPD (CHRONIC OBSTRUCTIVE PULMONARY DISEASE) PFT Testing 05-Oct-2018 10:27 To 05-Oct-2018 11:57 Encounter Diagnosis: COPD (CHRONIC OBSTRUCTIVE PULMONARY DISEASE) [facility] Radiology 05-Oct-2018 10:25 To 05-Oct-2018 12:52 Encounter Diagnosis: ABNORMAL CT SCAN, LUNG ( Renamed from ABNORMAL CT SCAN OF LUNG) [facility] Office Visit 03-Sep-2018 9:39 To 11-Oct-2018 10:56 Encounter Reason: Abnormal Chest Imaging - Radiographic findings include a pleural effusion (left), an air bronchogram [facility] (left) and an infiltrate (LLL, RML, BRAYAN). The patient was referred by a primary care provider. Initial presentation was 2 month(s) ago. Presentation included cough, dyspnea, fever (in 06/2018), wheezing, incidental findings on chest x-ray, incidental findings on chest CT and incidental findings on abdominal CT. Past evaluation has included chest x-ray and chest CT (PET 11/2017). Treat ment has included analgesics (ceftin in 07/2018, did not help, may be slightly better.). Symptoms include cough, dyspnea and wheezing, while symptoms do not include chest pain, hemoptysis or palpitations . Onset was gradual 2 month(s) ago. The patient describes this as moderate in severity and unchanged. Symptoms are exacerbated by physical exertion, while symptoms are not exacerbated by air pollutants, smoking or supine position. Symptoms are relieved by rest and inhaled medication, while symptoms are not relieved by activity modification, irritant avoidance, an upright position or steroids. Associat ed symptoms include fatigue, fever (some time) and weight loss, while associated symptoms do not include anxiety, diaphoresis, rash, arthralgia or night sweats. The patient is not currently being treate d for this problem. By report there is good compliance with treatment. Pertinent medical history includes asthma, chronic obstructive pulmonary disease , chronic respiratory disease, tobacco use (quit in 1967 after 9 year smoking.) and malignancy (basal cell, breast,), while pertinent medical history does not include aspirated foreign body, cardiovascular disease, diabetes, endocrine dysfunction, gastr ointestinal disease, penetrating chest wound, pulmonary embolus, previous pneumonia, cardiothoracic surgery, HIV infection or tuberculosis. Risk factors do not include tobacco use, occupational toxic ex posure, impaired immunity or [facility] residency. Encounter Diagnosis: COPD (CHRONIC OBSTRUCTIVE PULMONARY DISEASE), ABNORMAL CT SCAN, LUNG (Renamed from ABNORMAL CT SCAN OF LUNG) Historical Summary 02-Sep-2018 16:23 To 02-Sep-2018 17:45 [facility] Office Payers [employer] [place] [address] [facility] [address] [place] Group Number: NONE tel: [facility] [address] [address] [place] [address] [place] Group Number: [id number] tel: KEVIN BLAIR [address] [place] [address] tel:
[2019-08-10 13:15] LABS: ABS Basophils 0.1 10^3/ul (0-0.2); ABS Monocytes 0.6 10^3/ul (0-0.8); ABS Neutrophils 9.6 10^3/ul (1.5-7.7); Eosinophil % 0.3 %; Hematocrit 42 % (35-47); Hemoglobin 13.8 g/dL (12.0-16.0); Lymphocyte % 9.2 %; Mean Corpuscular HGB Conc 33 g/dL (31-36); Mean Corpuscular Hemoglobin 29 pg (27-31); Mean Corpuscular Volume 86 fL (80-97); Nucleated Red Blood Cells % 0.1; Platelet Count 253 10^3/uL (150-450); Red Blood Count 4.82 10^6 /uL (3.70-4.87); Red Cell Distribution Width 14 % (10-15); White Blood Count 11.3 10^3/uL (3.5-10.8)
[2019-08-10 13:38] LABS: Albumin 3.5 g/dL (3.2-5.2); BUN/Creatinine Ratio 17.6 (8-20); Calcium 8.6 mg/dL (8.6-10.3); EGFR African American 101.5 (>60); EGFR Non-African American 83.9 (>60); Potassium 3.5 mmol/L (3.5-5.0); Total Protein 7.1 g/dL (6.4-8.9)
[2019-08-10 13:39] LABS: Globulin 3.6 g/dL (2-4); Total Bilirubin 0.5 mg/dL (0.2-1.0)
[2019-08-10] MEDS ORDERED: Morphine 4 MG/ML VIAL (1 ml) 4 MG/ML VIAL IV ONE (13:41)
[2019-08-10] MEDS ORDERED: hydrALAZINE IV* 20 MG/ML VIAL IV SLOW PU PRN (15:12)
[2019-08-10] MEDS ORDERED: Acetaminophen TAB* 325 MG PO PRN (17:16)
[2019-08-10] MEDS ORDERED: Ondansetron INJ* 2 MG/ML VIAL IV PRN (17:16)
[2019-08-10] MEDS ORDERED: Al Hydrox/Mg Hydrox/Simet LIQ* 30 ML UDC PO PRN (17:16)
[2019-08-10] MEDS ORDERED: Morphine INJ* 2 MG/ML 1 ML SYRINGE (TWO MG - NEW SYRINGE VERSION) IV PRN (17:16)
[2019-08-10] MEDS ORDERED: Albuterol HFA INHALER* 8 gm MDI INH PRN (17:21)
[2019-08-10] MEDS ORDERED: NS 0.9% 1000 ML** 1,000 ML IV SCH (17:30)
[2019-08-10] MEDS ORDERED: Albuterol/Ipratropium NEB.SOL* Albuterol 2.5 MG/Ipratropium 0.5 MG 3 ML INH PRN (17:37)
[2019-08-10 17:47] LABS: Urine Appearance Clear; Urine Bilirubin Negative (Negative); Urine Blood Negative (Negative); Urine Color Straw; Urine Glucose Negative (Negative); Urine Ketones Negative (Negative); Urine Nitrite Negative (Negative); Urine Protein Negative (Negative); Urine Urobilinogen Negative (Negative)
[2019-08-10] MEDS: Ketorolac INJ* 15 MG/ML 1 ML VIAL IV PUSH PRN (18:10)
--- NOTE | 2019-08-10 20:18 | CONS ---
CONSULTATION REPORT: DATE OF CONSULT: 08/10/19 ATTENDING ORTHOPEDIC PROVIDER: Eduardo Petty MD CHIEF COMPLAINT: Left hip pain. HISTORY OF PRESENT ILLNESS: The patient is a 79-year-old female presenting to the emergency room with a chief complaint of fall this morning around 9:15 when she was walking her daughter's dog. Dog pulled the leash causing her to fall to the ground. She landed on her left hip and was unable to get back up. She was immediately unable to bear weight and a bystander brought her to the emergency room. At baseline, she walks without an assistive device and lives alone taking care of herself. She is quite active with walking, golfing and gardening with no chest pain or shortness of breath with activity. Her past medical history is significant for COPD and asthma which she considers well controlled. She is otherwise in her normal state of health, no recent illness and no complaints. Currently, she is comfortable lying in bed, though has left hip pain with any movement. She has no pain of her left lower extremity otherwise. She has no pain of her right leg. She did fall onto her bilateral hands and reports some scrapes to her left hand, though is able to move the hand and wrist well without any pain. PAST MEDICAL HISTORY: Significant for asthma and COPD. PAST SURGICAL HISTORY: Significant for hysterectomy and lumpectomy with no adverse effects from anesthesia. ALLERGIES: Allergy to TETRACYCLINES causing a rash. Allergy to ADHESIVE, though she tolerates paper tape well. FAMILY HISTORY: No adverse effects from anesthesia. SOCIAL HISTORY: The patient lives alone. She walks without an assistive device at baseline. She is a former smoker. Occasional alcohol use. REVIEW OF SYSTEMS: General: Negative for fevers, chills, or recent illness. HEENT: Negative for head trauma, headache, or change in vision. Cardiac: Negative for chest pain or history of SC. Respiratory: Negative for any shortness of breath. Positive for well controlled COPD and asthma. GI: Negative for nausea, vomiting, diarrhea, or abdominal pain. : Negative for dysuria. Musculoskeletal: Positive for left hip pain. Neuro: Negative for any decreased sensation, numbness, tingling in bilateral lower extremities. PHYSICAL EXAM: Vital Signs: Temperature 98.3, pulse rate 85, oxygen saturation 96%, blood pressure 173/88. General: Well appearing, in no acute distress. HEENT: Normocephalic, atraumatic. Extraocular movements intact. Cardiac: S1, S2. Respiratory: Clear to auscultation bilaterally. Abdomen: Bowel sounds normoactive. No guarding. No rigidity. No distention. Musculoskeletal: Left hand 5th digit and ulnar aspect with some superficial abrasion. Able to flex and extend all digits and wrist without pain. There is no tenderness to palpation. Extremities: Otherwise, skin envelope intact. Able to flex and extend digits, wrist, elbow, and shoulder well without pain. Lower extremities, right lower extremity superficial abrasion to the right knee , nontender to palpation. Skin envelope was otherwise intact, nontender to palpation. Able to flex and extend digits, ankle, knee and hip without pain. Negative log roll at the hip. Left lower extremity shortened and externally rotated, skin envelope intact. Able to flex and extend digits, ankle without any pain. Knee and hip range of motion produces pain in the hip. She is tender to palpation over the lateral aspect of the hip, otherwise LLe nontender. DIAGNOSTIC STUDIES/LAB DATA: Pelvis CT, impacted fracture of the left femoral neck. Left knee x-ray, no fracture of the left knee. Laboratory studies: Hemoglobin 13.8, hematocrit 42. INR 1.0. Sodium 136, potassium 3.5, creatinine 0.68. ASSESSMENT: Left femoral neck fracture. PLAN: The patient has remained nonweightbearing on bed rest. She can have chemical DVT prophylaxis stopped at midnight and she should also be made n.p.o. at midnight. Morning labs should include CBC, BMP, INR, type and screen. She is going to need a hemiarthroplasty or a total hip replacement on the left side. The patient and her daughter, Zoë, are both in agreement to this. I have discussed this case with Dr. Petty, who agrees with the assessment and plan. Either he or one of the orthopedic partners will perform her surgery either 08/11 or 08/12 GREGORY PYLE [id number]/CPS #: [id number] MTDD
--- NOTE | 2019-08-10 20:26 | HP ---
HISTORY AND PHYSICAL: DATE OF ADMISSION: 08/10/19 PRIMARY CARE PROVIDER: Dr. Harris Fairchild in [place], [place]. ATTENDING PHYSICIAN WHILE IN THE HOSPITAL: Dr. Erickson Medel * (dictated by GREGORY Foss). CHIEF COMPLAINT: Left hip pain, status post fall. HISTORY OF PRESENT ILLNESS: Tess Shafer is a 79-year-old white female with past medical history significant for COPD, breast cancer, asthma, frequent UTIs and osteoporosis, who presented to the emergency department today due to left hip pain after a fall. She was walking her daughter's dog when suddenly the dog exerted a pull and she fell to the ground. She then started to get up and then the dog pulled her to the ground once more. She landed on both of her hands, her left knee, and her left hip. She immediately had left hip pain. She denies head injury. She denies paresthesias or other anesthesias to the lower extremities. She denies pain in her hands, wrists, arms or her knee at this time. She denies visual changes, headache, chest pain, difficulty breathing, abdominal pain, nausea, or vomiting. Additionally, she denies dysuria or hematuria and fever or chills. She tells me she is on chronic UTI suppression with Keflex, which she tells me her transitional care manager put her on due to her frequent UTIs. EMERGENCY DEPARTMENT COURSE: The patient arrived to the emergency department. Her temperature was 98.3 degrees Fahrenheit, pulse rate 83, respiratory rate 18 , oxygen saturation 96% on room air, blood pressure of 187/103. Hip x-ray demonstrated a fracture of the left femoral neck and therefore, the hospitalists were asked to evaluate the patient for admission. PAST MEDICAL HISTORY: 1. COPD/asthma. 2. Breast cancer in 2016 and 2017. No chemoradiation. 3. Frequent UTIs. 4. Osteoporosis. PAST SURGICAL HISTORY: 1. Bladder InterStim implant. 2. Total hysterectomy. 3. Right breast lumpectomy. HOME MEDICATIONS: 1. Aspirin 81 mg p.o. weekly. 2. Albuterol inhaler 1 puff inhaled q.6 hours p.r.n. shortness of breath/ wheezing. 3. Reglan 5 mg p.o. q.6 hours p.r.n. indigestion. 4. Zoledronic acid 5 mg IV yearly. 5. Keflex 250 mg p.o. daily. 6. Tamoxifen 20 mg p.o. daily. 7. Loratadine 10 mg p.o. daily. 8. Hyoscyamine 0.35 mg p.o. every other day. 9. PreserVision AREDS softgel 1 tab p.o. b.i.d. 10. Caltrate 600 plus D 2 tab p.o. daily. 11. Anoro Ellipta 25 mcg inhaled daily. 12. Multivitamin 1 tab p.o. daily. ALLERGIES: The patient has had a reaction of rash to BETADINE. Reaction of rash to TETRACYCLINES. Reaction of rash to ADHESIVE TAPE. FAMILY HISTORY: Mother of complications related to a fall in her 70s. She had a history of rheumatoid arthritis. Her father 10 days after her mother from what sounds like acute heart failure likely related to takotsubo also in the 70s. The patient tells me she was told her father of a broken heart. SOCIAL HISTORY: The patient is a retired teacher. She is and had 3 children, 2 of which are living. She is a prior smoker for 9 years and she smoked pack and a half day, she quit in 1967. She denies alcohol use and drug use. REVIEW OF SYSTEMS: An 11-point review of systems was completed and all pertinent positives and negatives are above in the HPI. All other systems are negative. PHYSICAL EXAMINATION GENERAL: A thin elderly white female, lying in hospital bed, appearing comfortable, in no acute distress. Daughter at bedside. HEENT: Head: Normocephalic, atraumatic. Eyes: PERRL. Sclerae anicteric. ENT: Mucous membranes moist. NECK: Supple without JVD. LUNGS: Clear to auscultation throughout. CARDIO: Regular rate and rhythm without murmurs, rubs, or gallops. ABDOMEN: Soft, nontender, nondistended. EXTREMITIES: No clubbing, cyanosis, edema, or calf tenderness. NEUROLOGIC: The patient is able to move her both sides of toes and no limitations of her upper extremities as well. Sensation to light touch is intact throughout her lower extremities and symmetrical. The patient is alert and oriented x3. No focal deficits. MUSCULOSKELETAL: Left leg externally rotated. Tenderness at the left hip with movement of the left lower extremity. DIAGNOSTIC STUDIES/LAB DATA: White blood cell count 11.3, hemoglobin 13.8, hematocrit 42, platelet count 253. Sodium 136, potassium 3.5, chloride 103, carbon dioxide 30, anion gap 3, BUN 12, creatinine 0.68, glucose 122, calcium 8.6. Unremarkable LFTs. Urinalysis overall negative. Hip/pelvis x-ray, angulated fracture of the left femoral neck. Left knee x-ray, limited study. No appreciable acute osseous injury of the left knee. Chest x-ray, left pleural effusion. Pulmonary fibrotic changes. Pelvis CT, impression, impacted fracture of the left femoral neck. ASSESSMENT AND PLAN: Tess Shafer is a 79-year-old white female with past medical history significant for chronic obstructive pulmonary disease/asthma, frequent urinary tract infections, breast cancer and osteoporosis, who presented to the emergency department due to left hip pain after an accidental fall, found to have a left femoral neck fracture. The patient will be admitted inpatient for: 1. Hip fracture. Orthopedic Surgery has been consulted and we are awaiting their recommendations. We greatly appreciate their input. The patient has been bedrest only. The patient has been made n.p.o. after midnight in anticipation of surgery for tomorrow and her subcu heparin will be stopped after midnight in anticipation of surgery tomorrow as well. The patient has no paresthesias or anesthesias of left lower extremity at this time. I will start pain control with p.r.n. Tylenol, Toradol, and oxycodone with p.r.n. morphine for breakthrough. I will start the patient on bowel regimen as well. I ordered the CT of the pelvis for the orthopedic team and results are as above. Regarding operative risks: The patient has an RCRI risk score of 0 indicating 3.9% 30-day risk of and myocardiac arrest. Additionally, the patient has a NSQIP cardiac complication risk of 0.2%, which is below average. 2. Hypertensive urgency. The patient does not have a past medical history of hypertension and she has been hypertensive in the emergency department with systolic blood pressure in the 190s. I have ordered p.r.n. hydralazine for this and we will continue to monitor this and adjust hydralazine as needed to ensure stabilization leading up to surgery. 3. Chronic obstructive pulmonary disease. We will continue the patient's formulary substitution for her Anoro Ellipta inhaler. No acute signs of exacerbation at this time. The patient does have small pleural effusion on chest x- ray and she should be encouraged to use the incentive spirometry. 4. History of breast cancer. The patient is taking tamoxifen and I will continue this. 5. History of frequent urinary tract infections. The patient takes chronic suppression of Keflex. I will continue this for now. However, the surgical team will likely be using IV antibiotics in the perioperative and postoperative phase and her oral antibiotics should be discontinued during that period of time. Her urinalysis is negative. 6. Leukocytosis. The patient's leukocytosis is likely related to stress of her fall and she does not have any other signs of infection at this time. Her chest x- ray is now suspicious for pneumonia and her urine is clear and she is afebrile. We will continue to follow this leukocytosis. 7. FEN. The patient will have a regular unrestricted diet at this time and will be placed n.p.o. after midnight with continuous normal saline starting at midnight. Electrolytes are within normal limits. 8. Code status. The patient is full code. 9. DVT prophylaxis. The patient is on subcu heparin. She has a DVT risk score of 5. Subcu heparin will be held after midnight as previously mentioned in anticipation of surgery tomorrow. TIME SPENT: Approximately 45 minutes was spent on this admission, approximately half this time was spent at bedside. This case has been reviewed by my attending, Dr. Erickson Medel, and he agrees with this plan of care. GREGORY FOSS [id number]/[facility] #: [id number] MTDDennis
--- NOTE | 2019-08-10 21:25 | CONS ---
ORTHOPEDIC CONSULTATION NOTE: DATE OF CONSULT: 08/10/19 DICTATED BY: Sophia Moore MD Thank you for this orthopedic consultation. CHIEF COMPLAINT: Left hip pain. HISTORY OF PRESENT ILLNESS: Ms. Shafer is a 79-year-old female who presented to [facility] Emergency Room today with a fall. She was walking the dog when the dog pulled on the leash and caused her to fall. She immediately had pain in the left hip and left knee. This was 10/10 pain making it difficult for her to stand or walk. She was brought to [facility], found to have a displaced femoral neck fracture on the left. The patient reports she is normally an independent ambulator, active with golf and other exercises. PAST MEDICAL HISTORY: Breast cancer, COPD, asthma. PAST SURGICAL HISTORY: Breast lumpectomy. HOME MEDICATIONS: 1. Albuterol inhaler 1 puff q.6 hours p.r.n. 2. Aspirin 81 mg p.o. weekly. 3. Calcium and vitamin D 2 tabs p.o. daily. 4. Keflex 250 mg p.o. daily. 5. Levbid 0.375 mg p.o. every other day. 6. Loratadine 10 mg p.o. daily. 7. Reglan 5 mg p.o. q.6 hours p.r.n. 8. Multivitamin 1 tablet p.o. daily. 9. Tamoxifen 20 mg p.o. daily. 10. Umeclidinium/vilanterol 62.5 MDI 25 mcg inhaled daily. 11. Reclast 5 mg IV yearly. ALLERGIES: TETRACYCLINE, ADHESIVE TAPE and IODINE. FAMILY HISTORY: Negative. SOCIAL HISTORY: The patient lives outside of [place], but has a [facility]. She has a daughter in [place] with grandchildren. Normally an independent ambulator. No tobacco or recreational drug use. Minimal alcohol use. REVIEW OF SYSTEMS: Positive for the recent fall. Positive for left hip and left knee pain. Negative for fever, chills, chest pain, shortness of breath, nausea, vomiting, headache, or dizziness. Otherwise, patient reports review of systems is negative or not relevant. PHYSICAL EXAMINATION: Vitals: Temperature 98.1, pulse 81, blood pressure 164/ 81, O2 saturation 97% on room air. General: The patient is a thin female, in no apparent distress, alert and oriented x3, pleasant mood, appropriate affect. Gait not assessed. Balance not assessed. HEENT: Atraumatic, normocephalic. Pupils equal and reactive to light. Chest: Unlabored breathing. Abdomen is soft, nontender, nondistended. Bilateral upper extremities, patient's skin is intact. Full range of motion of the shoulders, elbows, and hands. 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 2+ palpable radial pulses. Right lower extremity, the patient's skin is intact. No abrasions or open wounds. No palpable masses or lymph nodes. Hip flexion and knee flexion without pain distally. Positive dorsiflexion and plantarflexion with 5/5 strength. Full sensation to light touch in all nerve distributions. 2+ palpable DP pulse. Left lower extremity, the patient's leg is externally rotated. She does dorsiflex and plantarflex. 2 + palpable DP pulse. Full sensation to light touch in all nerve distributions. Any motions through the hip causes pain. Skin is intact with the hip. Thighs are swollen but compressible. DIAGNOSTIC STUDIES/LAB DATA: White blood cells 11.3, hematocrit 42, platelets 253. INR 1. Sodium 136, potassium 3.5, chloride 103, BUN and creatinine 12 and 0.68. Urine is negative for infection or abnormality. Radiograph, multiple views, the patient's multiple x-rays of the left hip and knee show a displaced femoral neck fracture. There are some moderate arthritic changes at the hip joint visualized. No obvious fracture at the knee. ASSESSMENT AND PLAN: Ms. Shafer is a 79-year-old female status post fall today with a displaced left femoral neck fracture. I am asked to consult by my colleague Dr. Petty. I am happy to take care for this patient. The patient, her daughter, and I discussed the femoral neck fracture today. Because she is so active and does have some arthritis in the hip joint, I would recommend a total hip arthroplasty and they are in agreement. They wished to proceed with operative care. The risks of surgery include but are not limited to bleeding, infection, damage to nearby structures, continued pain, need for further surgery, intraoperative fracture, nerve palsy, hardware failure or loosening, dislocation, leg length discrepancy, stroke, heart attack, blood clot and . They wished to proceed. We will await medical clearance on this patient. I will tentatively schedule her for left total hip arthroplasty either on 08/11/19 or 08/12/19. This will depend on her medical clearance and the next available operating room. The patient understands the treatment plan. For now, she will be on bedrest with p.r.n. analgesia. She will have a regular diet for now. [id number]/[facility] #: [id number] MTDD
[2019-08-10] MEDS ORDERED: Heparin VIAL(*) 5000 UNITS/ML VIAL (FIVE THOUSAND) SUBCUT SCH (22:00)
[2019-08-10] MEDS: oxyCODONE/Acetamin 5/325 MG* TAB PO PRN (22:23)
[2019-08-10] MEDS: Senna TAB 8.6 mg* TAB PO SCH (22:33)
[2019-08-11] MEDS: NS 0.9% 1000 ML** 1,000 ML IV SCH (00:28)
[2019-08-11] MEDS: Ketorolac INJ* 15 MG/ML 1 ML VIAL IV PUSH PRN ×4 (02:47→22:03)
[2019-08-11 06:42] LABS: ABS Eosinophils 0.2 10^3/ul (0-0.6); ABS Lymphocytes 1.9 10^3/ul (1.0-4.8); ABS Monocytes 0.6 10^3/ul (0-0.8); ABS Neutrophils 4.6 10^3/ul (1.5-7.7); Eosinophil % 2.3 %; Hematocrit 39 % (35-47); Hemoglobin 13.5 g/dL (12.0-16.0); Lymphocyte % 26.2 %; Mean Corpuscular HGB Conc 34 g/dL (31-36); Mean Corpuscular Hemoglobin 30 pg (27-31); Mean Corpuscular Volume 86 fL (80-97); Mean Platelet Volume 7.3 fL (7.4-10.4); Nucleated Red Blood Cells % 0.1; Platelet Count 219 10^3/uL (150-450); Red Blood Count 4.58 10^6 /uL (3.70-4.87); Red Cell Distribution Width 14 % (10-15); White Blood Count 7.4 10^3/uL (3.5-10.8)
[2019-08-11 07:20] LABS: Calcium 8.2 mg/dL (8.6-10.3); Potassium 3.7 mmol/L (3.5-5.0)
[2019-08-11 07:25] LABS: EGFR African American 115.1 (>60); EGFR Non-African American 95.1 (>60)
[2019-08-11] MEDS: Tiotropium Brom/Olodaterol MDI INH SCH (07:58)
[2019-08-11] MEDS: Senna TAB 8.6 mg* TAB PO SCH ×2 (08:53→22:03)
[2019-08-11] MEDS ORDERED: Influenza VAC *QUAD* 2019-20* 0.5 ML SYRINGE IM ONE (09:00)
[2019-08-11] MEDS ORDERED: Cephalexin CAP* 250 MG PO SCH (09:00)
[2019-08-11] MEDS ORDERED: Cetirizine* 10 MG TAB PO SCH (09:00)
[2019-08-11] MEDS ORDERED: Tamoxifen TAB* 10 MG PO SCH (09:00)
[2019-08-11] MEDS ORDERED: Multivitamins/Minerals TAB PO SCH (09:00)
--- NOTE | 2019-08-11 09:44 | PN ---
Progress Note - Progress Note Date of Service: 08/11/19 SOAP: Subjective: [] Pt seen at bedside. Her pain is well controlled and she has no complaints. Denies CP, SOB, dizziness, nausea. She was seen by Dr Moore last night and will have a left total hip replacement today at approx 1400. Objective: []Gen: Appears well, NAD LLE: shortened and externally rotated limb. F/E at MTPs and ankle intact, sensation intact distally, DP2+. Calves supple and nontender Assessment: []L femoral neck fracture Plan: []Bedrest, NWB LLE OR today with Dr Moore for left total hip replacement at approx 1400. Patient is aware and agreeable to this procedure. All of her questions have been answered. Will need 2g Iv ancef preop, will sign written order in pacu Vital Signs Temp 97.7 F 08/11/19 07:22 Pulse 78 08/11/19 07:58 Resp 14 08/11/19 07:58 BP 133/81 08/11/19 07:22 Pulse Ox 98 08/11/19 07:58 Intake & Output 08/10/19 08/11/19 08/11/19 18:59 06:59 18:59 Intake Total 640 Output Total 900 Balance -260 Weight 110 lb 110 lb Intake: Oral 640 Output: Urine 900 Laboratory Last Values WBC 7.4 10^3/uL (3.5-10.8) 08/11/19 06:19 RBC 4.58 10^6 /uL (3.70-4.87) 08/11/19 06:19 Hgb 13.5 g/dL (12.0-16.0) 08/11/19 06:19 Hct 39 % (35-47) 08/11/19 06:19 MCV 86 fL (80-97) 08/11/19 06:19 MCH 30 pg (27-31) 08/11/19 06:19 MCHC 34 g/dL (31-36) 08/11/19 06:19 RDW 14 % (10-15) 08/11/19 06:19 Plt Count 219 10^3/uL (150-450) 08/11/19 06:19 MPV 7.3 fL (7.4-10.4) L 08/11/19 06:19 Neut % (Auto) 62.4 % 08/11/19 06:19 Lymph % (Auto) 26.2 % 08/11/19 06:19 Arthur % (Auto) 8.5 % 08/11/19 06:19 Eos % (Auto) 2.3 % 08/11/19 06:19 Baso % (Auto) 0.6 % 08/11/19 06:19 Absolute Neuts (auto) 4.6 10^3/ul (1.5-7.7) 08/11/19 06:19 Absolute Lymphs (auto) 1.9 10^3/ul (1.0-4.8) 08/11/19 06:19 Absolute Monos (auto) 0.6 10^3/ul (0-0.8) 08/11/19 06: Absolute Eos (auto) 0.2 10^3/ul (0-0.6) 08/11/19 06:19 Absolute Basos (auto) 0.0 10^3/ul (0-0.2) 08/11/19 06:19 Absolute Nucleated RBC 0.0 10^3/ul 08/11/19 06: Nucleated RBC % 0.1 08/11/19 06:19 INR (Anticoag Therapy) 1.00 (0.82-1.09) 08/10/19 13:07 APTT 32.8 seconds (26.0-38.0) 08/11/19 09:01 Sodium 137 mmol/L (135-145) 08/11/19 06:19 Potassium 3.7 mmol/L (3.5-5.0) 08/11/19 06:19 Chloride 106 mmol/L (101-111) 08/11/19 06:19 Carbon Dioxide 25 mmol/L (22-32) 08/11/19 06:19 Anion Gap 6 mmol/L (2-11) 08/11/19 06:19 BUN 11 mg/dL (6-24) 08/11/19 06:19 Creatinine 0.61 mg/dL (0.51-0.95) 08/11/19 06:19 Est GFR ( Amer) 115.1 (>60) 08/11/19 06:19 Est GFR (Non-Af Amer) 95.1 (>60) 08/11/19 06:19 BUN/Creatinine Ratio 18.0 (8-20) 08/11/19 06:19 Glucose 97 mg/dL (70-100) 08/11/19 06:19 Calcium 8.2 mg/dL (8.6-10.3) L 08/11/19 06:19 Total Bilirubin 0.50 mg/dL (0.2-1.0) 08/10/19 13:07 AST 22 U/L (13-39) 08/10/19 13:07 ALT 15 U/L (7-52) 08/10/19 13:07 Alkaline Phosphatase 62 U/L (34-104) 08/10/19 13:07 Total Protein 7.1 g/dL (6.4-8.9) 08/10/19 13:07 Albumin 3.5 g/dL (3.2-5.2) 08/10/19 13:07 Globulin 3.6 g/dL (2-4) 08/10/19 13:07 Albumin/Globulin Ratio 1.0 (1-3) 08/10/19 13:07 Urine Color Straw 08/10/19 15:28 Urine Appearance Clear 08/10/19 15:28 Urine pH 8.0 (5-9) 08/10/19 15:28 Ur Specific [place] 1.010 (1.010-1.030) 08/10/19 15:28 Urine Protein Negative (Negative) 08/10/19 15:28 Urine Ketones Negative (Negative) 08/10/19 15:28 Urine Blood Negative (Negative) 08/10/19 15:28 Urine Nitrate Negative (Negative) 08/10/19 15:28 Urine Bilirubin Negative (Negative) 08/10/19 15:28 Urine Urobilinogen Negative (Negative) 08/10/19 15:28 Ur Leukocyte Esterase Negative (Negative) 08/10/19 15:28 Urine Glucose Negative (Negative) 08/10/19 15:28 Blood Type O Positive 08/11/19 06:19 Antibody Screen Negative 08/11/19 06:19
[2019-08-11 12:47] LABS: ABS Eosinophils 0.1 10^3/ul (0-0.6); ABS Lymphocytes 1.3 10^3/ul (1.0-4.8); ABS Monocytes 0.5 10^3/ul (0-0.8); ABS Neutrophils 4.7 10^3/ul (1.5-7.7); Hematocrit 40 % (35-47); Hemoglobin 13.7 g/dL (12.0-16.0); Lymphocyte % 19.6 %; Mean Corpuscular HGB Conc 35 g/dL (31-36); Mean Corpuscular Hemoglobin 30 pg (27-31); Mean Corpuscular Volume 86 fL (80-97); Mean Platelet Volume 7.2 fL (7.4-10.4); Nucleated Red Blood Cells % 0.1; Platelet Count 238 10^3/uL (150-450); Red Blood Count 4.62 10^6 /uL (3.70-4.87); Red Cell Distribution Width 14 % (10-15); White Blood Count 6.6 10^3/uL (3.5-10.8)
[2019-08-11 12:50] LABS: Activated Partial Thrombo Time 31.6 seconds (26.0-38.0); INR 1.08 (0.82-1.09)
[2019-08-11 12:58] LABS: EGFR African American 103.3 (>60); EGFR Non-African American 85.3 (>60)
[2019-08-11] MEDS: Heparin VIAL(*) 5000 UNITS/ML VIAL (FIVE THOUSAND) SUBCUT SCH ×2 (13:34→22:01)
[2019-08-11] MEDS: oxyCODONE/Acetamin 5/325 MG* TAB PO PRN (13:34)
[2019-08-11] MEDS ORDERED: hydrALAZINE IV* 20 MG/ML VIAL IV SLOW PU ONE (13:43)
--- NOTE | 2019-08-11 13:51 | PN ---
Subjective Date of Service: 08/11/19 Interval History: Pt is feeling well. She is a little worked up about her surgery being cancelled for cardiology evaluation. The patient tells me she is able to walk up hill/ climb a flight of stairs without any chest pain or SOB. She was told previously that she had an abnormal EKG. Objective Active Medications: Acetaminophen (Tylenol Tab*) 650 mg PO Q4H PRN PRN Reason: MILD PAIN or TEMP > 100.4 Al Hydrox/Mg Hydrox/Simethicone (Maalox Plus*) 30 ml PO Q6H PRN PRN Reason: INDIGESTION Albuterol/Ipratropium (Duoneb (Albuterol 2.5 Mg/Ipratropium 0.5 Mg)) 1 neb INH Q4H PRN PRN Reason: SOB/WHEEZING Cephalexin HCl (Keflex Cap*) 250 mg PO DAILY@0900 [facility] Cetirizine HCl (Zyrtec*) 10 mg PO DAILY@0900 [facility] Famotidine (Pepcid Iv*) 20 mg IV ONCE ONE Stop: 08/12/19 08:01 Heparin Sodium (Porcine) (Heparin Vial(*)) 5,000 units SUBCUT Q8HR [facility] Stop: 08/11/19 23:59 Last Admin: 08/11/19 13:34 Dose: 5,000 units Hydralazine HCl (Apresoline Iv*) 5 mg IV SLOW PU ONCE ONE Stop: 08/11/19 13:44 Hydralazine HCl (Apresoline Iv*) 10 mg IV SLOW PU Q6H PRN PRN Reason: SYSTOLIC BP GREATER THAN: Sodium Chloride (Ns 0.9% 1000 Ml) 1,000 mls @ 100 mls/hr IV PER RATE [facility] Last Admin: 08/11/19 00:28 Dose: 100 mls/hr Ketorolac Tromethamine (Toradol Inj*) 15 mg IV PUSH Q6H PRN PRN Reason: PAIN - MODERATE Last Admin: 08/11/19 08:59 Dose: 15 mg Morphine Sulfate (Morphine Inj (Syringe))*) 2 mg IV Q4H PRN PRN Reason: severe pain breakthrough Multivitamins/Minerals (Theragran/Minerals Tab*) 1 tab PO DAILY@0900 [facility] Ondansetron HCl (Zofran Inj*) 4 mg IV Q4H PRN PRN Reason: NAUSEA/VOMITING Oxycodone/Acetaminophen (Percocet 5/325 Tab*) 1 tab PO Q4H PRN PRN Reason: PAIN - SEVERE Last Admin: 08/11/19 13:34 Dose: 1 tab Senna (Senokot 8.6 Mg Tab*) 1 tab PO 0900,2100 [facility] Tamoxifen Citrate (Nolvadex*) 20 mg PO DAILY@0900 [facility] Tiotropium [place]/Olodaterol (Stiolto Respimat Inh [place] (60 Puff)) 2 puff INH DAILY [facility] Last Admin: 08/11/19 07:58 Dose: 2 puff Vital Signs - 8 hr 08/11/19 08/11/19 08/11/19 07:22 07:58 12:11 Temperature 97.7 F 98.1 F Pulse Rate 80 78 96 Respiratory 16 14 16 Rate Blood Pressure 133/81 176/88 (mmHg) O2 Sat by Pulse 94 98 99 Oximetry 08/11/19 08/11/19 13:27 13:34 Temperature Pulse Rate Respiratory 18 Rate Blood Pressure 172/84 (mmHg) O2 Sat by Pulse Oximetry Oxygen Devices in Use Now: None Appearance: Elderly female sitting up in bed, NAD Eyes: No Scleral Icterus Ears/Nose/Mouth/Throat: Mucous Membranes Moist Respiratory: Symmetrical Chest Expansion and Respiratory Effort, Clear to Auscultation Cardiovascular: NL Sounds; No Murmurs; No JVD, No Edema, - - mildly tachycardic but regular Abdominal: NL Sounds; No Tenderness; No Distention Extremities: No Clubbing, Cyanosis, - - LLQ shortened and externally rotated Skin: No Nodules or Sclerosis Neurological: Alert and Oriented x 3 Result Diagrams: 08/11/19 12:17 08/11/19 12:16 Assess/Plan/Problems-Billing Ms Shafer is a 79 yo F who has a h/o COPD/asthma, osteoporosis and frequent UTIs on suppressive Abx therapy who was walking dog when she was pulled down twice and unfortunately sustained a left hip fracture. - Patient Problems (1) Closed left hip fracture Current Visit: Yes Status: Acute Code(s): S72.002A - FRACTURE OF UNSP PART OF NECK OF LEFT FEMUR, INIT SNOMED Code(s): 945786461 Comment: Management per Dr. Moore. Anesthesia has asked for cardiology evaluation pre-operatively. I suspect based on the patient's abnormal EKG with ST-T wave abnormalities in the anterolateral leads. Clinically the patient is very active and has a RCRI of 0 and is considered below risk via the NSQIP. Await further recommendations from Dr. Moore. Will try to obtain old EKG from pt 's PCP. (2) Asthma Current Visit: Yes Status: Acute Code(s): J45.909 - UNSPECIFIED ASTHMA, UNCOMPLICATED SNOMED Code(s): 445738964 Comment: Stable. No exacerbation. Will continue stiolto and prn duonebs. (3) Osteoporosis Current Visit: Yes Status: Acute Code(s): M81.0 - AGE-RELATED OSTEOPOROSIS W /O CURRENT PATHOLOGICAL FRACTURE SNOMED Code(s): 07985540 Comment: Pt receives zometa yearly. (4) Frequent UTI Current Visit: Yes Status: Acute Code(s): N39.0 - URINARY TRACT INFECTION, SITE NOT SPECIFIED SNOMED Code(s): 019128073 Comment: Continue keflex as suppression. (5) DVT prophylaxis Current Visit: Yes Status: Acute Code(s): Z29.9 - ENCOUNTER FOR PROPHYLACTIC MEASURES, UNSPECIFIED SNOMED Code(s): 197332487 Comment: SQ heparin (6) Full code status Current Visit: Yes Status: Acute Code(s): Z78.9 - OTHER SPECIFIED HEALTH STATUS SNOMED Code(s): 514439815
[2019-08-11] MEDS: Tamoxifen TAB* 10 MG PO SCH (17:42)
--- NOTE | 2019-08-11 19:24 | ECHO ---
*[facility]* [place] [address] Fax #: [phone] Transthoracic Echocardiogram Patient: Tess Shafer : 1940 Study Date: 08/11/2019 Age: 79 Gender: F HR: 93 bpm Height: 66 in /167.6 cm BSA: 1.55 m^2 Weight: 109.8 lb /49.9 kg BMI: 17.8 kg/m^2 *Certified Ophthalmic Technologist: * Cat Cameron RD *Referring Physician: * Ekaterina Brooke MD *Reading Physician: * Ekaterina Brooke MD Indications: Abnormal EKG. History: Chronic obstructive pulmonary disease. The patient has a history of breast malignancy. Risk factors: Former tobacco use. Conclusions Summary: - Left ventricle: The cavity size is below normal. Wall thickness is moderately increased. Systolic function is hyperdynamic. The estimated ejection fraction is 70-75%. Doppler parameters are consistent with abnormal left ventricular relaxation (grade 1 diastolic dysfunction). - Left atrium: The atrium is severely dilated. - Mitral valve: The Mitral valve annulus appears mildly calcified. The leaflets are mildly thickened. There is trace to mild regurgitation. - Aortic valve: Thickening, consistent with sclerosis. - Tricuspid valve: There is mild-moderate regurgitation directed toward the septum. - Pulmonary arteries: Systolic pressure is mildly increased. The peak pressure during systole by Doppler is 34.0 mm Hg, possibly underestimated. - Prior echocardiogram not available to compare. Study data: Transthoracic echocardiogram. Procedure: Transthoracic echocardiography was performed. Image quality was good. Complete 2D, spectral Doppler, and color flow Doppler. Location: Bedside. Patient status: Inpatient. Patient room number: 347-02. Rhythm: Normal sinus rhythm. Findings Left ventricle: The cavity size is below normal. Wall thickness is moderately increased. Systolic function is hyperdynamic. The estimated ejection fraction is 70-75%. Wall motion is normal; there are no regional wall motion abnormalities. Doppler parameters are consistent with abnormal left ventricular relaxation (grade 1 diastolic dysfunction). Doppler parameters are consistent with elevated ventricular end-diastolic filling pressure. Right ventricle: The cavity size is mildly dilated. The moderator band is in a normal position. Systolic function is normal. Systolic pressure is mildly increased. Left atrium: The atrium is severely dilated. Right atrium: The atrium is mildly dilated. Mitral valve: The Mitral valve annulus appears mildly calcified. The leaflets are mildly thickened. There is no evidence of stenosis. There is trace to mild regurgitation. Aortic valve: The leaflets are mildly thickened. Thickening, consistent with sclerosis. There is no evidence of stenosis. There is trace regurgitation. Tricuspid valve: The leaflets are normal thickness. There is no evidence of stenosis. There is mild-moderate regurgitation directed toward the septum. Pulmonic valve: The leaflets are normal thickness. There is no evidence of stenosis. There is no significant regurgitation. Aorta: Aortic root: The aortic root is appears normal. Ascending aorta: The ascending aorta is appears normal. Aortic arch: The aortic arch is appears normal. Pericardium: There is no significant pericardial effusion. Pulmonary arteries: The main pulmonary artery is normal-sized. Systolic pressure is mildly increased. Systemic veins: Inferior vena cava: The vessel is normal in size. There is (>= 50%) respiratory change in the IVC dimension. Measurements Left ventricle Value Ref Aortic valve Value Ref ANJU, LAX (L) 3.3 cm 3.8 - 5.2 Sheryl diam, ED 1.6 cm ----- ESD, LAX 2.2 cm 2.2 - 3.5 Peak v, S 1.8 m/sec ----- FS, LAX 34 % 27 - 45 VTI, S 31.6 cm ----- PW, ED, LAX (H) 1.4 cm 0.6 - 0.9 Mean grad, S 7.0 mm Hg ----- FS 34 % 27 - 45 Peak grad, S 13.0 mm Hg ----- PW, ED (H) 1.4 cm 0.6 - 0.9 LVOT/AV, VTI ratio 0.76 ----- PW/ID, ED 0.43 E', lat sheryl, TDI (L) 8.6 cm/sec >=10.0 Mitral valve Value Ref E/e', lat sheryl, 10 Peak E 0.88 m/sec ----- TDI Peak A 1.02 m/sec ----- E', med sheryl, TDI (L) 4.9 cm/sec >=7.0 Decel time 239 ms --- -- E/e', med sheryl, 18 Peak grad, D 3.1 mm Hg ----- TDI Peak E/A ratio 0.9 ----- E', avg, TDI 6.8 cm/sec E/e', avg, TDI 14 <=14 Pulmonic valve Value Ref Peak v, S 0.92 m/sec ----- LVOT Value Ref Peak grad, S 3.0 mm Hg ----- Peak ivan, S 1.12 m/sec VTI, S 24.0 cm Tricuspid valve Value Ref Peak grad, S 5 mm Hg TR peak v (H) 2.9 m/sec <=2.8 Mean grad, S 3 mm Hg Peak RV-RA grad, S 34 mm Hg ----- Ventricular septum Value Ref Aortic root Value Ref IVS, ED (H) 1.4 cm 0.6 - 0.9 Root diam 2.9 cm <3.8 Root max diam, ED 2.9 cm <3.8 Right ventricle Value Ref ANJU, LAX 2.6 cm Ascending aorta Value Ref ANJU minor ax, A4C (H) 4.6 cm 1.9 - 3.5 AAo AP diam, S 3.3 cm ----- mid Pressure, S 37 mm Hg Aortic arch Value Ref Arch diam 2.1 cm ----- Left atrium Value Ref AP dim, ES 3.30 cm 2.70 - Decending aorta Value Ref 3.80 Eliu peak ivan 0.7 m/sec ----- ML dim, A4C 5.1 cm SI dim, A4C 5.9 cm Pulmonary artery Value Ref Vol/bsa, ES, 1-p (H) 62 ml/m^2 11 - 40 Pressure, S 34.0 mm Hg ----- A4C Vol/bsa, ES, A/L (H) 59 ml/m^2 16 - 34 Inferior vena cava Value Ref Diam 1.7 cm ----- Right atrium Value Ref SI dim, ES (H) 5.7 cm 3.4 - 5.3 ML dim, ES, A4C 3.3 cm 2.6 - 4.4 SI dim, ES, A4C (H) 5.7 cm 3.4 - 5.3 Estimated RAP 3 mm Hg Legend: (L) and (H) venecia values outside specified reference range. Prepared and electronically signed by Ekaterina Brooke MD 08/11/2019 19:23
[2019-08-11] MEDS ORDERED: hydrALAZINE IV* 20 MG/ML VIAL IV SLOW PU PRN (20:00)
[2019-08-11] MEDS: Multivitamins/Minerals TAB PO SCH (22:02)
[2019-08-11] MEDS: Cetirizine* 10 MG TAB PO SCH (22:03)
--- NOTE | 2019-08-11 22:04 | CONS ---
CC: Dr. Harris Fairchild in [place], [place]; Dr. Sophia Moore; Hospitalist * CARDIOLOGY CONSULTATION REPORT: DATE OF CONSULT: 08/11/19 REASON FOR CONSULTATION: Abnormal ECG, preop evaluation. HISTORY OF PRESENT ILLNESS: Mrs. Shafer is a 79-year-old woman who is active, but had a fall today while walking her daughter's dog and the dog pulled her to the ground. Her hip was painful and she presented to the emergency room, was found to have left hip fracture. The patient was scheduled for hip repair today ; however, her EKG was abnormal and the procedure was canceled. The patient was presented with her daughter. She says she has had an abnormal EKG before and workup did not reveal any serious conditions. The EKG is consistent with left ventricular hypertrophy, but she says she has never had high blood pressure. PAST MEDICAL HISTORY: 1. COPD/asthma. 2. Breast cancer 2016 and 2017. 3. Recurrent UTIs. 4. Osteoporosis. PAST SURGICAL HISTORY: Includes: 1. Bladder stimulation implant. 2. Hysterectomy. 3. Lumpectomy MEDICATIONS: Outpatient medications include: 1. Aspirin. 2. Albuterol. 3. Reglan. 4. Keflex 250 mg a day. 5. Zoledronic 5 mg yearly. 6. Tamoxifen 20 mg a day. 7. Loratadine 10 mg a day. 8. Hyoscyamine 0.35 mg every other day. 9. PreserVision AREDS softgel. 10. Caltrate and vitamin D. 11. Anoro Ellipta 250 mcg a day. 12. MultiVites. ALLERGIES: Include BETADINE, TETRACYCLINE, and TAPE ALLERGY. FAMILY HISTORY: Positive for mother having rheumatoid arthritis, father had a history of heart failure/possible Takotsubo syndrome. SOCIAL HISTORY: The patient is a retired teacher, , quit smoking in 1967 , supportive daughter. REVIEW OF SYSTEMS: Negative for any recent fevers, chills, sweats, chest pain, pressure, heaviness, orthopnea, PND. No recent coughing. No dizziness, palpitation, racing of the heart. No past history of syncope. All other review of systems is negative. PHYSICAL EXAM: The patient is 5 feet 6 inches, weighs 110 pounds with BMI 18. Vital Signs: Blood pressure 135/62, pulse is 84, respiratory rate 14 to 18, afebrile, oxygen saturation 98% on room air. General Appearance: Thin, fit- appearing older woman, lying in bed at 30 degrees, appearing comfortable, daughter at her bedside. Psychologically, pleasant and cooperative. Neurologically, awake, alert, and oriented to person, place, and time. Cranial nerves II through XII intact. Grossly normal sensory and motor function in the upper and lower extremities to the extent that I could examine her with her hip fracture. Skin: Warm, dry. No cyanosis or rashes. Age-appropriate changes. HEENT: Pupils are equal and round. Mucous membrane moist. Neck: Without increased JVP. No thyromegaly. Breath sounds clear in all rhodes posteriorly, laterally, and anteriorly. Coronary: S1, S2 regular without appreciable murmurs or rubs. Abdomen: Flat, active bowel sounds, soft, nontender. Lower extremities are free of edema. DIAGNOSTIC STUDIES: Hip chest x-ray from 08/10/19 shows angulated fracture of the left femoral neck. Chest x-ray from 08/10/19 shows left pleural effusion and pulmonary fibrotic changes (reviewed personally and agree with the presence of the left pleural effusion, small). A 12-lead ECG shows normal sinus rhythm, 75 beats per minute, QRS axis +15 with normal AV and IV conduction times. She has left ventricular hypertrophy by voltage criteria with repolarization abnormalities with inverted and biphasic T waves in the lateral leads, no old EKG to compare. Echocardiogram done today showed moderate left ventricular hypertrophy, small chamber diameter, hyperdynamic ventricular function with an ejection fraction of 70% to 75% with mildly abnormal diastolic filling. All valves showed good function. She had mitral annular calcification with trace to mild mitral insufficiency, aortic valve sclerosis. She had [id number] tricuspid insufficiency. PA pressure estimated in the upper range of normal at 34 mmHg. LABORATORY DATA: White count on admission 11.3, white count today 6.3, hematocrit 40, platelet 238. INR 1.08, PTT 31.6. Sodium 137, potassium 3.7, chloride 106, bicarb 25, BUN 11, creatinine 0.61. Normal transaminases. Glucose today 97. Total protein 7.1, albumin 3.5. SUMMARY: Tess Shafer is a 79-year-old woman admitted with hip fracture following a traumatic event. Her EKG is consistent with left ventricular hypertrophy and she denies having hypertension, although blood pressures here have been as high as 187/103; however, this is with pain. Past records not yet available to compare or corroborate. The patient's echo could be from hypertensive heart disease, but there would be a differential of infiltrative diseases or age- related hypertrophy, senile hypertrophic cardiomyopathy. In terms of proceeding with surgery, I feel Mrs. Shafer can proceed with surgery for hip repair. I would recommend keeping her hydrated as her ventricles hyperdynamic, avoiding rapid shifts in fluid as she is at risk for diastolic congestive heart failure. The best agents to lower blood pressure would be rate lowering to improve filling time. We could consider looking for paraproteins as her total [id number] ratio is a bit high. Further recommendations will be made pending the patient's clinical course and clinical perioperative course. Thank you for allowing me to assist in this nice woman's care. [id number]/CPS #: [id number] MTDD
[2019-08-11] MEDS: Cephalexin CAP* 250 MG PO SCH (22:10)
[2019-08-12] MEDS: oxyCODONE/Acetamin 5/325 MG* TAB PO PRN ×2 (01:05→22:39)
[2019-08-12] MEDS: Ketorolac INJ* 15 MG/ML 1 ML VIAL IV PUSH PRN ×2 (06:38→12:55)
[2019-08-12 07:00] LABS: INR 1.05 (0.82-1.09)
[2019-08-12 07:12] LABS: BUN/Creatinine Ratio 25.4 (8-20); Calcium 8.3 mg/dL (8.6-10.3); EGFR African American 103.3 (>60); EGFR Non-African American 85.3 (>60); Potassium 3.6 mmol/L (3.5-5.0)
[2019-08-12] MEDS: Tiotropium Brom/Olodaterol MDI INH SCH (07:47)
[2019-08-12] MEDS ORDERED: Famotidine IV* 10 MG/ML 2 ML (20 mg) IV ONE (08:00)
[2019-08-12] MEDS ORDERED: Ondansetron ODT TAB* 4 MG PO ONE (09:21)
[2019-08-12] MEDS ORDERED: Buffered Lidocaine 1% SYRIN* 1 ML/SYRINGE INTRADERM ONE (09:21)
[2019-08-12] MEDS ORDERED: Dexamethasone TAB* 4 MG PO ONE (09:21)
[2019-08-12] MEDS ORDERED: DiMENhydriNATE IV* 50 MG/ML VIAL IV PUSH PRN (09:23)
[2019-08-12] MEDS ORDERED: PROCHLORPERAZINE INJ 5 MG/ML 2 ML VIAL IV PRN (09:23)
[2019-08-12] MEDS ORDERED: oxyCODONE TAB* 5 MG TAB PO PRN (09:23)
[2019-08-12] MEDS ORDERED: fentaNYL* 50 MCG/ML 2 ML VIAL (100 MCG VIAL) IV PRN (09:23)
[2019-08-12] MEDS ORDERED: HYDROmorphone INJ1* 1 MG/ML SYRINGE IV PRN (09:23)
[2019-08-12] MEDS ORDERED: Naloxone* 0.4 MG/ML 1 ML VIAL IV PRN (09:23)
[2019-08-12] MEDS ORDERED: Lactated Ringers 1000 ML Bag* 1,000 ML IV SCH (10:00)
[2019-08-12] MEDS: Multivitamins/Minerals TAB PO SCH (10:03)
[2019-08-12] MEDS: Cetirizine* 10 MG TAB PO SCH (10:03)
[2019-08-12] MEDS: Senna TAB 8.6 mg* TAB PO SCH ×2 (10:03→22:07)
[2019-08-12] MEDS: Cephalexin CAP* 250 MG PO SCH (10:04)
[2019-08-12] MEDS: Tamoxifen TAB* 10 MG PO SCH (10:04)
[2019-08-12] MEDS: NS 0.9% 1000 ML** 1,000 ML IV SCH ×2 (10:38→10:39)
[2019-08-12] MEDS ORDERED: Dexamethasone IV* 4 MG/ML 1 ML (4 MG) ONE (15:33)
[2019-08-12] MEDS ORDERED: Famotidine IV* 10 MG/ML 2 ML (20 mg) ONE (15:33)
[2019-08-12] MEDS ORDERED: ceFAZolin 2 GM PREMIX in ORs 2 GM/50 ML BAG ONE (15:36)
[2019-08-12] MEDS ORDERED: Ondansetron ODT TAB* 4 MG ONE (16:03)
[2019-08-12] MEDS ORDERED: Dexamethasone TAB* 4 MG ONE (16:03)
[2019-08-12] MEDS ORDERED: fentaNYL* 50 MCG/ML 2 ML VIAL (100 MCG VIAL) ONE (16:43)
[2019-08-12] MEDS ORDERED: KETAMINE HCL* 50 MG/ML 10 ML VIAL ONE (16:44)
[2019-08-12] MEDS ORDERED: Midazolam* 1 MG/ML 5 ML VIAL (5 MG) ONE (16:44)
--- NOTE | 2019-08-12 16:51 | PN ---
Subjective Date of Service: 08/12/19 Interval History: Pt seen in pre-op. She is nervous for surgery. She denies severe pain. No SOB or CP. Objective Active Medications: Acetaminophen (Tylenol Tab*) 650 mg PO Q4H PRN PRN Reason: MILD PAIN or TEMP > 100.4 Al Hydrox/Mg Hydrox/Simethicone (Maalox Plus*) 30 ml PO Q6H PRN PRN Reason: INDIGESTION Albuterol/Ipratropium (Duoneb (Albuterol 2.5 Mg/Ipratropium 0.5 Mg)) 1 neb INH Q4H PRN PRN Reason: SOB/WHEEZING Cephalexin HCl (Keflex Cap*) 250 mg PO DAILY@0900 [facility] Last Admin: 08/12/19 10:04 Dose: 250 mg Cetirizine HCl (Zyrtec*) 10 mg PO DAILY@0900 [facility] Last Admin: 08/12/19 10:03 Dose: Not Given Dimenhydrinate (Dramamine Iv*) 12.5 mg IV PUSH ONCE PRN PRN Reason: NAUSEA/VOMITING Fentanyl Citrate (Fentanyl*) 25 mcg IV Q5M PRN PRN Reason: PAIN - MODERATE Hydralazine HCl (Apresoline Iv*) 10 mg IV SLOW PU Q6H PRN PRN Reason: SYSTOLIC BP GREATER THAN: Hydromorphone HCl (Dilaudid Inj1s*) 0.1 mg IV Q5M PRN PRN Reason: PAIN - SEVERE Sodium Chloride (Ns 0.9% 1000 Ml) 1,000 mls @ 75 mls/hr IV PER RATE [facility] Last Admin: 08/12/19 10:39 Dose: 75 mls/hr Lactated Ringer's (Lactated Ringers 1000 Ml Bag*) 1,000 mls @ 125 mls/hr IV PER RATE [facility] Influenza Virus Vaccine (Fluarix Quad [id number] Syr) 0.5 ml IM .ONCE ONE Stop: 08/13/19 09:01 Ketorolac Tromethamine (Toradol Inj*) 15 mg IV PUSH Q6H PRN PRN Reason: PAIN - MODERATE Last Admin: 08/12/19 12:55 Dose: 15 mg Morphine Sulfate (Morphine Inj (Syringe))*) 2 mg IV Q4H PRN PRN Reason: severe pain breakthrough Multivitamins/Minerals (Theragran/Minerals Tab*) 1 tab PO DAILY@0900 [facility] Last Admin: 08/12/19 10:03 Dose: Not Given Naloxone HCl (Narcan*) 0.08 mg IV Q2M PRN PRN Reason: severe induced resp depression Ondansetron HCl (Zofran Inj*) 4 mg IV Q4H PRN PRN Reason: NAUSEA/VOMITING Oxycodone HCl (Roxycodone Tab*) 5 mg PO ONCE PRN PRN Reason: PAIN - MODERATE Oxycodone/Acetaminophen (Percocet 5/325 Tab*) 1 tab PO Q4H PRN PRN Reason: PAIN - SEVERE Last Admin: 08/12/19 01:05 Dose: 1 tab Prochlorperazine Edisylate (Compazine Inj*) 2.5 mg IV ONCE PRN PRN Reason: NAUSEA/VOMITING Senna (Senokot 8.6 Mg Tab*) 1 tab PO 0900,2100 [facility] Last Admin: 08/12/19 10:03 Dose: Not Given Tamoxifen Citrate (Nolvadex*) 20 mg PO DAILY@0900 [facility] Last Admin: 08/12/19 10:04 Dose: 20 mg Tiotropium Simpson/Olodaterol (Stiolto Respimat Inh [place] (60 Puff)) 2 puff INH DAILY [facility] Last Admin: 08/12/19 07:47 Dose: 2 puff Vital Signs - 8 hr 08/12/19 08/12/19 12:11 15:17 Temperature 99 F 99.1 F Pulse Rate 78 Respiratory 15 18 Rate Blood Pressure 149/69 171/80 (mmHg) O2 Sat by Pulse 99 96 Oximetry Oxygen Devices in Use Now: None Appearance: Elderly female lying in bed, NAD Eyes: No Scleral Icterus Ears/Nose/Mouth/Throat: Mucous Membranes Moist Respiratory: Symmetrical Chest Expansion and Respiratory Effort, Clear to Auscultation Cardiovascular: NL Sounds; No Murmurs; No JVD, RRR, No Edema Abdominal: NL Sounds; No Tenderness; No Distention Extremities: No Clubbing, Cyanosis Skin: No Nodules or Sclerosis Neurological: Alert and Oriented x 3 Result Diagrams: 08/11/19 12:17 08/12/19 06:12 Assess/Plan/Problems-Billing Ms Shafer is a 79 yo F who has a h/o COPD/asthma, osteoporosis and frequent UTIs on suppressive Abx therapy who was walking dog when she was pulled down twice and unfortunately sustained a left hip fracture. - Patient Problems (1) Closed left hip fracture Current Visit: Yes Status: Acute Code(s): S72.002A - FRACTURE OF UNSP PART OF NECK OF LEFT FEMUR, INIT SNOMED Code(s): 047528267 Comment: Management per Dr. Moore. I obtained old EKG from pt's PCP. EKG obtained at [facility] unchanged. Appreciate Dr. Brooke's evaluation. Echo with hyperdynamic systolic function. EF estimated to be 70-75%. Impaired relaxation noted. Medically optimized for surgery. (2) HTN (hypertension) Current Visit: Yes Status: Acute Code(s): I10 - ESSENTIAL (PRIMARY) HYPERTENSION SNOMED Code(s): 35006512 Comment: BP improved yesterday afternoon/evening. She did not receive any further doses of hydralazine. Monitor post-operatively. (3) Asthma Current Visit: Yes Status: Acute Code(s): J45.909 - UNSPECIFIED ASTHMA, UNCOMPLICATED SNOMED Code(s): 559413431 Comment: Stable. No exacerbation. Will continue stiolto and prn duonebs. (4) Osteoporosis Current Visit: Yes Status: Acute Code(s): M81.0 - AGE-RELATED OSTEOPOROSIS W /O CURRENT PATHOLOGICAL FRACTURE SNOMED Code(s): 44839764 Comment: Pt receives zometa yearly. (5) Frequent UTI Current Visit: Yes Status: Acute Code(s): N39.0 - URINARY TRACT INFECTION, SITE NOT SPECIFIED SNOMED Code(s): 653462733 Comment: Continue keflex as suppression. (6) DVT prophylaxis Current Visit: Yes Status: Acute Code(s): Z29.9 - ENCOUNTER FOR PROPHYLACTIC MEASURES, UNSPECIFIED SNOMED Code(s): 708490085 Comment: to be started post-op (7) Full code status Current Visit: Yes Status: Acute Code(s): Z78.9 - OTHER SPECIFIED HEALTH STATUS SNOMED Code(s): 813215184
--- NOTE | 2019-08-12 19:54 | OP ---
Operative Report - Blank - Operative Report Date of Operation: 08/12/19 Note: KEVIN BLAIR 1940 Date Of Surgery: 08/12/19 CHAPIS MEDLEY MD Appeals And Generalist Clerk: David JENKINS did help throughout the procedure with preparation of the hip, wound retraction, manipulation of the hip, and wound closure. Anesthesiologist: Dennis Botello MD Anesthesia Type: Spinal Preoperative Diagnosis: Left hip displaced femoral neck fracture Postoperative Diagnosis: As above Procedure Performed: Left Total Hip Arthroplasty Complications: None Specimen: Femoral head and acetabular reamings sent to pathology. Hardware used: This is uncemented Ange total hip arthroplasty hardware for the femur a size 5 accolade II with 127 neck angle femoral component, for the acetabulum a size 46C trident II tritanium cluster hole shell with one 15 mm screw, for the insert a size 32 C trident X 3 polyethylene insert, and for the femoral head a size 32 - 4 ceramic biolox V40 femoral head. Brief history/Indication: KEVIN BLAIR had a fall on 08/10/19 and had severe left side hip pain. She was brought to [facility] and found to have a displaced left femoral neck fracture with preexisting osteoarthritis of the hip on xray. She elected to undergo left total hip arthroplasty and was given both nonoperative and operative options. Informed consent was obtained from the patient. She understood the risks of surgery included but were not limited to: bleeding, infection, damage to nearby structures, intraoperative fracture, nerve palsy, failure of the hardware, early loosening, stiffness or loss of motion, dislocation, leg length discrepancy, anesthesia complications, stroke, heart attack, blood clot and . She wished to proceed. The patient had medical optimization before surgery from the hospitalist team. Intra-Operative findings: Intraoperatively the patient was noted to have severe loss of cartilage of the acetabulum. She had a comminuted femoral neck fracture. She was noted to have significant osteopenia. Description of the Procedure: KEVIN BLAIR was identified in the preanesthesia unit. Her left hip was marked as the correct operative side. Informed consent was signed and placed in the chart. The patient was taken to the operating room and placed under anesthesia without complication. A paige catheter was placed. The patient was placed on the peg board with all bony prominences well padded. The left lower extremity was prepped and draped in the usual sterile fashion. Preoperative time -out was made to correctly identify the patient, side and site. Appropriate intraoperative antibiotics were given within one hour of incision. A standard posterior incision was made and carried sharply down to the lateral fascia. A new 10 blade was used to make an incision in the fascia in line with the skin incision. A charnley retractor was placed. The piriformis and conjoined tendons were identified and elevated off the posterolateral femur using electrocautery. These were tagged with number 5 Ethibond. Next electrocautery was used to make a posterolateral capsular flap and this was tagged with number 5 Ethibonds. The femoral neck fracture was easily presented and an oscillating saw was used to make a cleanup cut. Lesser trochanter to the center of the femoral head was estimated at 55mm. The femoral head was carefully removed. The femur was retracted anteriorly and the acetabular retractors were placed. Long-handled knife was used to sharply remove any remaining labrum from the acetabular rim. The acetabulum was sequentially reamed up to a size 46. A bleeding subchondral bone bed was obtained. A trial liner was placed and had excellent fit and stability. A 46 C trident II tritanium cup with one 15 mm screw was placed and had excellent stability with appropriate anteversion and abduction angle. A size 32 C polyethylene liner was impacted into the acetabular shell. The liner was checked for stability and was stable. Next attention was turned to preparation of the femoral canal. A canal finder was used to enter the proximal femur. The femoral canal was sequentially broached up to a size 5 femoral broach trial. A trial neck and 32 - 4 trial femoral head was chosen. Lesser trochanter to center of the femoral head measurement was satisfactory. The hip was reduced and taken through a range of motion. The hip was stable in all positions with good soft tissue tension and appropriate leg lengths. The hip was dislocated and all trials were removed. The final implant chosen was a size 5 accolade II with 127 neck angle. This stem was impacted into the femoral canal without difficulty. The stem was stable with appropriate anteversion. The femoral head chosen was a 32 - 4 ceramic head. The head was impacted onto the femoral neck without difficulty. The final lesser trochanter to center of the femoral head measurement was satisfactory. The hip was reduced and taken through a range of motion. The hip was stable in all positions with good soft tissue tension and appropriate leg lengths. The hip was copiously irrigated with sterile saline. The previously tagged capsule and tendons were repaired to the posterolateral femur through two trochanteric drill holes. The lateral fascia layer was closed using number 1 vicryls. The rest of the incision was closed in a layered fashion using 0 and 2-0 vicryls. The skin was closed using 3-0 monocryl suture and Dermabond. Sterile adaptic, 4x4s and paper tape was used to cover the incision. The patients anesthesia was reversed without difficulty. She was taken to the PACU in stable condition. Intended weight-bearing will be as tolerated with posterior hip precautions.
[2019-08-12] MEDS ORDERED: Ketorolac INJ* 30 MG/ML 1 ML VIAL ONE (19:55)
[2019-08-12] MEDS ORDERED: Propofol* 500 MG/50 ML BTL ONE (19:55)
[2019-08-12] MEDS ORDERED: Phenylephrine 10 MG/ML VIAL* 1 ML VIAL ONE (19:55)
[2019-08-12] MEDS ORDERED: Acetaminophen IV 1GM/100ML * 100 ML ONE (19:55)
[2019-08-12] MEDS ORDERED: Metoprolol Tartrate IV* 1 MG/ML 5 ML VIAL ONE (19:57)
[2019-08-12] MEDS ORDERED: NS 0.45% 1000 ML BAG* 1,000 ML IV SCH ×2 (22:00→23:00)
[2019-08-13] MEDS: ceFAZolin 1 GM* X 3 DOSES POST-OP Q8H (AddVan) IVPB SCH ×4 (02:28→09:52)
[2019-08-13] MEDS: oxyCODONE/Acetamin 5/325 MG* TAB PO PRN ×2 (05:20→12:57)
[2019-08-13] MEDS ORDERED: Lactated Ringers 1000 ML Bag* 1,000 ML IV SCH (08:00)
[2019-08-13 08:21] LABS: ABS Eosinophils 0.1 10^3/ul (0-0.6); ABS Lymphocytes 1.1 10^3/ul (1.0-4.8); ABS Monocytes 1.1 10^3/ul (0-0.8); ABS Neutrophils 10.7 10^3/ul (1.5-7.7); Eosinophil % 0.4 %; Hematocrit 38 % (35-47); Hemoglobin 12.7 g/dL (12.0-16.0); Lymphocyte % 8.2 %; Mean Corpuscular HGB Conc 34 g/dL (31-36); Mean Corpuscular Hemoglobin 29 pg (27-31); Mean Corpuscular Volume 87 fL (80-97); Mean Platelet Volume 7.3 fL (7.4-10.4); Platelet Count 243 10^3/uL (150-450); Red Blood Count 4.36 10^6 /uL (3.70-4.87); Red Cell Distribution Width 14 % (10-15)
[2019-08-13] MEDS: Ketorolac INJ* 15 MG/ML 1 ML VIAL IV PUSH PRN ×2 (08:23→14:26)
[2019-08-13] MEDS: Multivitamins/Minerals TAB PO SCH (08:26)
[2019-08-13] MEDS: Senna TAB 8.6 mg* TAB PO SCH (08:26)
[2019-08-13] MEDS: Tamoxifen TAB* 10 MG PO SCH (08:27)
[2019-08-13] MEDS: Cetirizine* 10 MG TAB PO SCH (08:27)
[2019-08-13] MEDS: Tiotropium Brom/Olodaterol MDI INH SCH (08:28)
[2019-08-13 08:37] LABS: Calcium 7.9 mg/dL (8.6-10.3); EGFR African American 71.6 (>60); EGFR Non-African American 59.2 (>60); Potassium 4.3 mmol/L (3.5-5.0)
--- NOTE | 2019-08-13 08:50 | PN ---
Subjective Date of Service: 08/13/19 Interval History: s/p pod 1 hip surgery for mechanical fall and fracture patient up ambulating with pt no chest pain, dyspnea or palpitations Medications Active Medications: Acetaminophen (Tylenol Tab*) 650 mg PO Q4H PRN PRN Reason: MILD PAIN or TEMP > 100.4 Al Hydrox/Mg Hydrox/Simethicone (Maalox Plus*) 30 ml PO Q6H PRN PRN Reason: INDIGESTION Albuterol/Ipratropium (Duoneb (Albuterol 2.5 Mg/Ipratropium 0.5 Mg)) 1 neb INH Q4H PRN PRN Reason: SOB/WHEEZING Apixaban (Eliquis*) 2.5 mg PO BID [facility] Last Admin: 08/13/19 08:26 Dose: 2.5 mg Cephalexin HCl (Keflex Cap*) 250 mg PO DAILY@0900 [facility] Cetirizine HCl (Zyrtec*) 10 mg PO DAILY@0900 [facility] Last Admin: 08/13/19 08:27 Dose: Not Given Hydralazine HCl (Apresoline Iv*) 10 mg IV SLOW PU Q6H PRN PRN Reason: SYSTOLIC BP GREATER THAN: Cefazolin Sodium 1 gm/ Sodium (Chloride) 50 mls @ 200 mls/hr IVPB Q8H [facility] Stop: 08/13/19 18:14 Last Admin: 08/13/19 02:28 Dose: 200 mls/hr Lactated Ringer's (Lactated Ringers 1000 Ml Bag*) 1,000 mls @ 100 mls/hr IV PER RATE [facility] Last Admin: 08/13/19 08:04 Dose: 100 mls/hr Influenza Virus Vaccine (Fluarix Quad 3503-0810 Syr) 0.5 ml IM .ONCE ONE Stop: 08/13/19 09:01 Last Admin: 08/13/19 08:27 Dose: Not Given Ketorolac Tromethamine (Toradol Inj*) 15 mg IV PUSH Q6H PRN PRN Reason: PAIN - MODERATE Last Admin: 08/13/19 08:23 Dose: 15 mg Morphine Sulfate (Morphine Inj (Syringe))*) 2 mg IV Q4H PRN PRN Reason: severe pain breakthrough Multivitamins/Minerals (Theragran/Minerals Tab*) 1 tab PO DAILY@0900 [facility] Last Admin: 08/13/19 08:26 Dose: 1 tab Ondansetron HCl (Zofran Inj*) 4 mg IV Q4H PRN PRN Reason: NAUSEA/VOMITING Oxycodone/Acetaminophen (Percocet 5/325 Tab*) 1 tab PO Q4H PRN PRN Reason: PAIN - SEVERE Last Admin: 08/13/19 05:20 Dose: 1 tab Senna (Senokot 8.6 Mg Tab*) 1 tab PO 0900,2100 [facility] Last Admin: 08/13/19 08:26 Dose: 1 tab Tamoxifen Citrate (Nolvadex*) 20 mg PO DAILY@0900 [facility] Last Admin: 08/13/19 08:27 Dose: 20 mg Tiotropium [place]/Olodaterol (Stiolto Respimat Inh [place] (60 Puff)) 2 puff INH DAILY [facility] Last Admin: 08/13/19 08:28 Dose: 2 puff Objective Vital Signs: Temp Pulse Resp BP Pulse Ox 98.1 F 73 18 115/54 98 08/13/19 07:44 08/13/19 07:44 08/13/19 07:46 08/13/19 07:44 08/13/19 07:44 Oxygen Devices in Use Now: None Appearance: nad, pleasant Respiratory: Symmetrical Chest Expansion and Respiratory Effort Cardiovascular: RRR Extremities: No Edema Neurological: Alert and Oriented x 3 Laboratory Results: 08/13/19 08:08 08/13/19 08:08 INR (Anticoag Therapy) 1.05 (0.82-1.09) 08/12/19 06:12 APTT 31.6 seconds (26.0-38.0) 08/11/19 12:16 Total Bilirubin 0.50 mg/dL (0.2-1.0) 08/10/19 13:07 AST 22 U/L (13-39) 08/10/19 13:07 ALT 15 U/L (7-52) 08/10/19 13:07 Alkaline Phosphatase 62 U/L (34-104) 08/10/19 13:07 Total Protein 7.1 g/dL (6.4-8.9) 08/10/19 13:07 Albumin 3.5 g/dL (3.2-5.2) 08/10/19 13:07 Globulin 3.6 g/dL (2-4) 08/10/19 13:07 Albumin/Globulin Ratio 1.0 (1-3) 08/10/19 13:07 Assessment/Plan Patient is asymptomatic from a cardiac standpoint, her untreated BP is normal today. Will sign off, please contact with questions or concerns
--- NOTE | 2019-08-13 08:51 | PN ---
Subjective Date of Service: 08/13/19 Interval History: HOSPITALIST PROGRESS NOTE Patient seen and examined at bedside. Care reviewed and d/w Erlinda Ramirez RN. She feels well today. Hip pain is 6/10, but responds to pain medications. Got up with PT today and did very well. She denies CP, palpitations, N/V. Her only concern was making sure she gets her Keflex for UTI prophylaxis. Family History: Unchanged from Admission Social History: Unchanged from Admission Past Medical History: Unchanged from Admission Objective Active Medications: Acetaminophen (Tylenol Tab*) 650 mg PO Q4H PRN PRN Reason: MILD PAIN or TEMP > 100.4 Al Hydrox/Mg Hydrox/Simethicone (Maalox Plus*) 30 ml PO Q6H PRN PRN Reason: INDIGESTION Albuterol/Ipratropium (Duoneb (Albuterol 2.5 Mg/Ipratropium 0.5 Mg)) 1 neb INH Q4H PRN PRN Reason: SOB/WHEEZING Apixaban (Eliquis*) 2.5 mg PO BID [facility] Last Admin: 08/13/19 08:26 Dose: 2.5 mg Cephalexin HCl (Keflex Cap*) 250 mg PO DAILY@0900 [facility] Cetirizine HCl (Zyrtec*) 10 mg PO DAILY@0900 [facility] Last Admin: 08/13/19 08:27 Dose: Not Given Hydralazine HCl (Apresoline Iv*) 10 mg IV SLOW PU Q6H PRN PRN Reason: SYSTOLIC BP GREATER THAN: Cefazolin Sodium 1 gm/ Sodium (Chloride) 50 mls @ 200 mls/hr IVPB Q8H [facility] Stop: 08/13/19 18:14 Last Admin: 08/13/19 02:28 Dose: 200 mls/hr Lactated Ringer's (Lactated Ringers 1000 Ml Bag*) 1,000 mls @ 100 mls/hr IV PER RATE [facility] Last Admin: 08/13/19 08:04 Dose: 100 mls/hr Influenza Virus Vaccine (Fluarix Quad 2995-3043 Syr) 0.5 ml IM .ONCE ONE Stop: 08/13/19 09:01 Last Admin: 08/13/19 08:27 Dose: Not Given Ketorolac Tromethamine (Toradol Inj*) 15 mg IV PUSH Q6H PRN PRN Reason: PAIN - MODERATE Last Admin: 08/13/19 08:23 Dose: 15 mg Morphine Sulfate (Morphine Inj (Syringe))*) 2 mg IV Q4H PRN PRN Reason: severe pain breakthrough Multivitamins/Minerals (Theragran/Minerals Tab*) 1 tab PO DAILY@0900 [facility] Last Admin: 08/13/19 08:26 Dose: 1 tab Ondansetron HCl (Zofran Inj*) 4 mg IV Q4H PRN PRN Reason: NAUSEA/VOMITING Oxycodone/Acetaminophen (Percocet 5/325 Tab*) 1 tab PO Q4H PRN PRN Reason: PAIN - SEVERE Last Admin: 08/13/19 05:20 Dose: 1 tab Senna (Senokot 8.6 Mg Tab*) 1 tab PO 0900,2100 [facility] Last Admin: 08/13/19 08:26 Dose: 1 tab Tamoxifen Citrate (Nolvadex*) 20 mg PO DAILY@0900 [facility] Last Admin: 08/13/19 08:27 Dose: 20 mg Tiotropium [place]/Olodaterol (Stiolto Respimat Inh [place] (60 Puff)) 2 puff INH DAILY [facility] Last Admin: 08/13/19 08:28 Dose: 2 puff Vital Signs - 8 hr 08/13/19 08/13/19 08/13/19 00:54 01:03 03:10 Temperature 97 F 97.3 F Pulse Rate 72 73 Respiratory 16 16 16 Rate Blood Pressure 104/47 104/47 (mmHg) O2 Sat by Pulse 95 95 Oximetry 08/13/19 08/13/19 08/13/19 05:20 07:44 07:46 Temperature 98.1 F Pulse Rate 73 Respiratory 16 16 18 Rate Blood Pressure 115/54 (mmHg) O2 Sat by Pulse 98 Oximetry Oxygen Devices in Use Now: None Appearance: Pleasant elderly lady lying in bed in NAD Eyes: No Scleral Icterus Ears/Nose/Mouth/Throat: Mucous Membranes Moist Neck: Trachea Midline Respiratory: Symmetrical Chest Expansion and Respiratory Effort, Clear to Auscultation Cardiovascular: RRR - Normal S1 and S2 Abdominal: NL Sounds; No Tenderness; No Distention Extremities: No Edema, - - Left hip CDI. Good pulses and capillary refill, sensation intact Neurological: Alert and Oriented x 3, NL Muscle Strength and Tone Result Diagrams: 08/13/19 08:08 08/13/19 08:08 Assess/Plan/Problems-Billing Assessment: Ms Shaefr is a 79 yo F who has a h/o COPD/asthma, breast CA on Tamoxifen, osteoporosis and frequent UTIs on suppressive Abx therapy who was walking her dog when she was pulled down twice and unfortunately sustained a left hip fracture. - Patient Problems (1) Closed left hip fracture Comment: - S/p left total hip arthroplasty 08/12/19. - Management as per Ortho. - Did well with PT today. (2) HTN (hypertension) Comment: - BP elevated in the setting of pain, now controlled off meds. - Continue to monitor. (3) Asthma Comment: - Stable, with no signs of exacerbation. - Continue bronchodilators. (4) Osteoporosis Comment: - On Zometa yearly. (5) Frequent UTI Comment: - Will receive Cafzolin IV x 24h post op and then transition to her usual Keflex dose. (6) DVT prophylaxis Comment: - Apixaban as per Ortho. (7) Full code status Status and Disposition: Inpatient.
[2019-08-13] MEDS ORDERED: Influenza VAC *QUAD* 2019-20* 0.5 ML SYRINGE IM ONE (09:00)
[2019-08-13] MEDS ORDERED: Apixaban* 2.5 MG TAB PO SCH (09:00)
--- NOTE | 2019-08-13 11:20 | PN ---
Progress Note - Progress Note Date of Service: 08/13/19 Note: bjective: []Patient seen OOB in chair. Her daughter is present who is a physical therapist in [place]. Ms. Nunez did well this morning with mobilization and hip precautions. She denies dizziness, SOB, CP or nausea. She feels she is ready for discharge this afternoon as she will be going to her daughter's home. Objective: [] Vital Signs Temp 98.5 F 08/13/19 08:43 Pulse 75 08/13/19 08:43 Resp 18 08/13/19 09:14 BP 115/74 08/13/19 08:43 Pulse Ox 100 08/13/19 08:43 Intake & Output 08/12/19 08/13/19 08/13/19 18:59 06:59 18:59 Intake Total 1640 2488 Output Total 2100 1600 Balance -460 888 Weight 119 lb Intake: IV Fluids 1400 980 LR 1300 980 NS 100ML, Cefazolin 2G 100 IVPB 58 ABX - CEFAZOLIN 58 Oral 240 1450 Output: Ruiz 2100 1600 Laboratory Results - last 24 hr 08/13/19 08/13/19 06:44 06:44 Hgb 10.6 L Hct 30 L Plt Count 230 MPV 7.6 Sodium 137 Potassium 4.3 Chloride 104 Carbon Dioxide 29 Anion Gap 4 BUN 11 Creatinine 0.65 Est GFR ( Amer) 109.0 Est GFR (Non-Af Amer) 90.1 BUN/Creatinine Ratio 16.9 Glucose 98 Calcium 8.8 Left hip dressing dry and intact calf NT and soft +Df left ankle sensation and circulation intact distally Assessment: []s/p Left total hip arthroplasty for femoral neck fracture POD #1 Plan: []She may be discharged home to daughter's this afternoon if DME's are set up and per Medical service [place]. Recommend Eliquis for 30 days post op Light dressing as needed to left hip She may shower on Friday08/15/19 Follow up in 10-[address] Moore in office.
[2019-08-13 11:27] VITALS: BP 112/53
[2019-08-13] MEDS ORDERED: Cephalexin CAP* 500 MG PO ONE (18:00)
[2019-08-14] MEDS ORDERED: Cephalexin CAP* 250 MG PO SCH (09:00)
--- NOTE | 2019-08-14 20:01 | DS ---
CC: Dr. Harris Fairchild, [place], [place]; Dr. Sophia Moore * DISCHARGE SUMMARY: DATE OF ADMISSION: 08/10/19 DATE OF DISCHARGE: 08/13/19 PRIMARY CARE PROVIDER: Dr. Harris Fairchild in [place], [place]. ORTHOPEDIST: Dr. Sophia Moore. DISCHARGE DIAGNOSIS: Left hip displaced femoral neck fracture, status post left total hip arthroplasty. SECONDARY DIAGNOSES: 1. Chronic obstructive pulmonary disease. 2. Asthma. 3. Breast cancer, status post right lumpectomy. 4. Recurrent urinary tract infections. 5. Osteoporosis. MEDICATION LIST: 1. Albuterol HFA 1 puff inhaled q.6 hours p.r.n. shortness of breath. 2. Metoclopramide 5 mg p.o. q.6 hours p.r.n. nausea and vomiting. 3. Zoledronic acid 5 mg IV once a year. 4. Cephalexin 250 mg p.o. daily. 5. Tamoxifen 20 mg p.o. daily. 6. Loratadine 10 mg p.o. daily. 7. Levbid 0.375 mg p.o. every other day. 8. PreserVision AREDS 2 one capsule p.o. b.i.d. 9. Caltrate plus vitamin D 2 tablets p.o. daily. 10. Anoro 62.5/25 one puff inhaled daily. 11. Multivitamins 1 tablet p.o. daily. New medications: 1. Percocet 5/325 mg 1 to 2 tablets p.o. q.6 hours p.r.n. [id number] pain, MDD 8 tablets, dispensed 30. 2. Acetaminophen 650 mg p.o. q.4 hours p.r.n. mild pain. 3. Apixaban 2.5 mg p.o. b.i.d. for 30 days. HOSPITAL COURSE: Ms. Shafer is a 79-year-old female with a past medical history as stated above who presented to the emergency room after sustaining a mechanical fall with complaints of left hip pain. The patient states she was walking her daughter's dog when suddenly the dog exerted a pull and she fell to the ground. She then started to get up and then the dog pulled her to the ground once again. She landed on both of hands, her left knee, and her left hip and immediately complained of left hip pain. For more details about her presentation, I refer you to her history and physical. In the emergency room, the patient had a hip and pelvis x-ray that showed an angulated fracture of the left femoral neck. A knee x-ray was a limited study, but no appreciable acute osseous injury of the left knee was seen. A chest x- ray showed left pleural effusion with pulmonary fibrotic changes, and a CT of the pelvis showed an impacted fracture of the left femoral neck. The patient was admitted for further evaluation. She was seen in consultation by Orthopedics (Dr. Moore) and her plan was for total hip arthroplasty when the patient is medically stable. The patient was hypertensive in the setting of pain and she was seen in consultation by Cardiology (Dr. Brooke). The patient was also found to have an abnormal EKG with repolarization abnormalities and inverted and biphasic T- waves in the lateral leads and there was no prior EKG to compare. Dr. Brooke felt that the patient could proceed with surgery for hip repair, and a transthoracic echocardiogram showed hyperdynamic left ventricle with ejection fraction of 70% to 75%. The patient underwent left total hip arthroplasty on 08/12/[address] Moore and she did very well in the postop period. Her pain was well controlled with Percocet. She was able to ambulate with a walker with PT assistance and she was felt to be medically stable for discharge on 08/13/19 with home services and DME. The patient will be on apixaban for DVT prophylaxis for 30 days and she will follow up with Dr. Moore in a month in the office. PHYSICAL EXAMINATION: Vital Signs: Temperature 98.0, heart rate is 86, respiratory rate is 16, oxygen saturation is 100% on room air, blood pressure is 112/53. General: The patient is a pleasant elderly lady, sitting up in bed , in no acute distress. CVS: Normal S1, S2. Regular rate and rhythm. Chest: Breath sounds present bilaterally with no added sounds. Abdomen is soft. Bowel sounds present. Extremities: The patient has good pulses in bilateral lower extremities. Clean dressing intact to the left hip. Thigh and calf are soft, but there is some thigh edema. Sensation is intact and she has good capillary refill on the left lower extremity. DIET: Regular diet. ACTIVITIES: Weightbearing as tolerated. DISPOSITION: To home. STATUS WHILE IN THE HOSPITAL: Inpatient. CONDITION AT THE TIME OF DISCHARGE: Fair. Please keep in mind that this is a summarized version of this patient's hospital stay. If you need more information, please feel free to call me at or please obtain the full medical records. TIME SPENT: Approximately 45 minutes was spent to complete this discharge. [id number]/CPS #: [id number] OPAL
== END 2019-08-13 15:00 | disposition home health service (06) | DRG 470 ==
LOC: ED 10:40 → SSU 17:16
PROVIDERS: ADMIT Internal Medicine; ATTEND Internal Medicine
PROC: 0SRB04A Replacement of Left Hip Joint with Ceramic on Polyethylene Synthetic Substitute, Uncemented, Open Approach (ICD-10-PCS; principal; 2019-08-12 19:15)
DX: S72.002A Fracture of unspecified part of neck of left femur, initial encounter for closed fracture (principal); I16.1 Hypertensive emergency; J90 Pleural effusion, not elsewhere classified; M81.0 Age-related osteoporosis without current pathological fracture; M16.12 Unilateral primary osteoarthritis, left hip; M85.88 Other specified disorders of bone density and structure, other site; W18.30XA Fall on same level, unspecified, initial encounter; F41.9 Anxiety disorder, unspecified; I10 Essential (primary) hypertension; R94.31 Abnormal electrocardiogram [ECG] [EKG]; D72.829 Elevated white blood cell count, unspecified; J44.9 Chronic obstructive pulmonary disease, unspecified; Z90.710 Acquired absence of both cervix and uterus; Z88.1 Allergy status to other antibiotic agents; Z91.048 Other nonmedicinal substance allergy status; Y92.9 Unspecified place or not applicable; Z87.891 Personal history of nicotine dependence; Z72.89 Other problems related to lifestyle; Z85.3 Personal history of malignant neoplasm of breast; Z88.8 Allergy status to other drugs, medicaments and biological substances; Z87.440 Personal history of urinary (tract) infections; Z82.61 Family history of arthritis; Z82.49 Family history of ischemic heart disease and other diseases of the circulatory system
CPT/HCPCS: 36415; 71045; 72192; 80048; 80053; 81003; 82565; 84520; 85025; 85610; 85730; 86850; 86900; 86901; 88305; 88311; 93005; 93306; 94640; 99284; A9270-GY; C1713; C1776; G8978-GP-CJ; G8979-GP-CI; J0360; J0690; J1100; J1644; J1885; J2250; J2270; J2704; J3010; J3490; J3535; J8540